=== PATIENT | female | born 1940 | race American Indian/Alaskan Native ===

== ENCOUNTER 2016-10-23 06:04 | Inpatient (IN) | payer MEDICARE, BC ==
[2016-10-23] MEDS ORDERED: Lactated Ringer's 1,000 ML IV ONE ×2 (06:35→09:57)
[2016-10-23 07:00] VITALS: BMI 32.1
[2016-10-23] MEDS ORDERED: Propofol 10 mg/ml Inj (20 ML) ONE (07:10)
[2016-10-23] MEDS ORDERED: Midazolam 2 MG/2 ML VIAL ONE (07:11)
[2016-10-23] MEDS ORDERED: Rocuronium 10 mg/ml (5 ml) ONE (07:11)
[2016-10-23] MEDS ORDERED: ePHEDrine 50 mg/ml Inj ONE ×3 (07:11→08:51)
[2016-10-23] MEDS ORDERED: Bupivacaine HCl 0.25% PF (30 ml) Inj ONE (07:12)
[2016-10-23] MEDS ORDERED: Lidocaine 2% w Epi 1:100,000 Inj IJ ONE ×2 (07:12→08:03)
[2016-10-23] MEDS ORDERED: Succinylcholine 200 mg/10 ml Inj IV ONE (07:12)
--- NOTE | 2016-10-23 07:42 | CP.PCM.CON ---
History of Present Illness - History of Present Illness History of Present Illness: 76 yo female presents with LBP x 5-6 year's gradual onset with no hx of trauma or fall,radiation RLE 4 years ago with paresthesias,progressive weakness and difficulty ambulating,uses a cane to ambulate,minimal temporary relief with multiple epidural injections,pain meds and PT,referred to Dr. Reyes for further eval, outpt MRI showing multi level lumbar spondylosis and instability,denies bowel or bladder incontinance or foot drop. Review of Systems - Review of Systems Systems not reviewed;Unavailable: Acuity of Condition - EENT Eyes: Requires Corrective Lenses - Cardiovascular Additional comments: Hx Htn - Gastrointestinal Additional comments: constipation - Musculoskeletal Musculoskeletal: Radiating Pain into Limb, Tingling - Neurological Neurological: As Per HPI - Hematologic/Lymphatic Additional comments: last used Aleve 2 weeks Past Patient History - Infectious Disease Hx of Infectious Diseases: None - Tetanus Immunizations Tetanus Immunization: Unknown - Past Medical History & Family History Past Medical History?: Yes - Past Social History Smoking Status: Never Smoked Chewing Tobacco Use: No Cigar Use: No Occupation: Retired Teacher Alcohol: Occasional Drugs: Denies Home Situation {Lives}: With Family Domestic Violence: Negative - CARDIAC Hx Cardiac Disorders: Yes Hx Hypercholesterolemia: Yes Hx Hypertension: Yes - PULMONARY Hx Respiratory Disorders: No - NEUROLOGICAL Hx Neurological Disorder: No - HEENT Hx HEENT Problems: No - RENAL Hx Chronic Kidney Disease: No - ENDOCRINE/METABOLIC Hx Endocrine Disorders: No - HEMATOLOGICAL/ONCOLOGICAL Hx Blood Disorders: No - INTEGUMENTARY Hx Dermatological Problems: No - MUSCULOSKELETAL/RHEUMATOLOGICAL Hx Musculoskeletal Disorders: Yes Hx Arthritis: Yes Hx Back Pain: Yes Hx Rheumatoid Arthritis: Yes Other/Comment: MUSCLE WEAKNESS - GASTROINTESTINAL Hx Gastrointestinal Disorders: No - GENITOURINARY/GYNECOLOGICAL Hx Genitourinary Disorders: No - PSYCHIATRIC Hx Psychophysiologic Disorder: No - SURGICAL HISTORY Hx Surgeries: Yes Other/Comment: REMOVAL LEFT OVARY 1970 - ANESTHESIA Hx Anesthesia: Yes Hx Anesthesia Reactions: No Hx Malignant Hyperthermia: No Has any member of the family had a problem w/ anesthesia?: No Meds Allergies/Adverse Reactions: Allergies Allergy/AdvReac Type Severity Reaction Status Date / Time No Known Allergies Allergy Verified 10/23/16 06:59 Physical Exam - Constitutional Appears: Well, Non-toxic, No Acute Distress - Head Exam Head Exam: ATRAUMATIC, NORMAL INSPECTION, NORMOCEPHALIC - Eye Exam Eye Exam: EOMI, Normal appearance, PERRL Pupil Exam: NORMAL ACCOMODATION - ENT Exam ENT Exam: Mucous Membranes Moist - Neck Exam Neck exam: Positive for: Normal Inspection - Respiratory Exam Respiratory Exam: Clear to Auscultation Bilateral - Cardiovascular Exam Cardiovascular Exam: REGULAR RHYTHM, +S1, +S2 - GI/Abdominal Exam GI & Abdominal Exam: Normal Bowel Sounds, Soft - Rectal Exam Rectal Exam: Deferred Additional comments: no pelvic paresthesias - Extremities Exam Extremities exam: Positive for: normal inspection, pedal pulses present - Back Exam Back exam: vertebral tenderness Additional comments: GRIDER x 4 antigravity with good strength,sensation intact,neg babinski - Neurological Exam Neurological exam: Alert, Oriented x3 - Psychiatric Exam Psychiatric exam: Normal Affect, Normal Mood - Skin Skin Exam: Dry, Intact Results - Vital Signs Recent Vital Signs: Last Vital Signs Temp 97.7 F 10/23/16 06:40 Pulse 64 10/23/16 06:40 Resp 18 10/23/16 06:40 BP 153/80 H 10/23/16 06:40 Pulse Ox 100 10/23/16 06:40 - Labs Result Diagrams: 10/24/16 07:30 10/24/16 07:30 - Impressions Impression: MRI results reviewed by Dr. 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 Reyes.
[2016-10-23] MEDS ORDERED: Dexamethasone 4 mg/1 ml ONE (08:08)
[2016-10-23] MEDS ORDERED: HEMOSTATIC MATRIX 10 ML DIS.NEEDLE TOP ONE (08:41)
[2016-10-23] MEDS ORDERED: Desflurane Inhalation Anesthetic Liq (240 ml) ONE (09:11)
[2016-10-23] MEDS ORDERED: APROTININ/FIBRINOGEN(TISSEEL) ONE ×2 (09:47→09:56)
[2016-10-23] MEDS ORDERED: Neostigmine Methylsulfate 3mg/3ml Syringe IV ONE (10:11)
[2016-10-23] MEDS ORDERED: Bupivacaine 0.25% Inj(30mL) IJ ONE ×2 (10:24→10:55)
[2016-10-23] MEDS ORDERED: HYDROmorphone 0.5 mg/0.5 ml ISec IVP PRN (11:29)
[2016-10-23] MEDS ORDERED: Naloxone 0.4 mg/ml Inj (Adult) IVP PRN (11:30)
--- NOTE | 2016-10-23 15:58 | RAD ---
PROCEDURE: Fluoroscopy greater than 1 hr. HISTORY: PLIF COMPARISON: None TECHNIQUE: Standard protocol for this study/examination. FINDINGS: Total fluoroscopic time (continuous mode) utilized during the procedure: 59.9 seconds IMPRESSION: Submitted images from the current procedure: 1.0. Greater than than 1 hr fluoroscopic time utilized during performance of the procedure.
[2016-10-23] MEDS: Lactated Ringer's 1,000 ML IV SCH ×2 (16:00→22:08)
[2016-10-23] MEDS: Dexamethasone 4 MG in Sodium Chloride 0.9% 50 ML IVPB SCH ×2 (16:00→22:05)
[2016-10-23] MEDS: ceFAZolin 1 GM in Sodium Chloride 0.9% 100 ML IVPB SCH (17:00)
[2016-10-23] MEDS ORDERED: Alum-Mag Hydrox-Simethicone Susp (30 mL) PO ONE (23:20)
[2016-10-24] MEDS: ceFAZolin 1 GM in Sodium Chloride 0.9% 100 ML IVPB SCH ×3 (00:03→16:22)
[2016-10-24] MEDS: Dexamethasone 4 MG in Sodium Chloride 0.9% 50 ML IVPB SCH ×4 (03:07→21:35)
[2016-10-24 07:59] LABS: BASO % 0.2 % (0.0-2.0); HEMATOCRIT 29.3 % (34.0-47.0); LYMPH # 0.5 K/uL (1.0-4.3); LYMPH % 8.1 % (20.0-40.0); MEAN CELL VOLUME 84.6 fl (81.0-99.0); MEAN CORPUSCULAR HEMOGLOBIN 27.6 pg (27.0-31.0); MEAN CORPUSCULAR HGB CONC 32.7 g/dL (33.0-37.0); MEAN PLATELET VOLUME 7.8 fl (7.2-11.7); MONO # 0.3 K/uL (0.0-0.8); MONO % 4.7 % (0.0-10.0); NEUT # 5.5 K/uL (1.8-7.0); PLATELET COUNT 194 K/uL (130-400); RED CELL DISTRIBUTION WIDTH 16.4 % (11.5-14.5); WHITE BLOOD COUNT 6.4 K/uL (4.8-10.8)
[2016-10-24 08:12] LABS: BLOOD UREA NITROGEN 18 mg/dl (7-17); CALCIUM 9.1 mg/dL (8.4-10.2); CARBON DIOXIDE 28 mmol/L (22-30); CHLORIDE 107 mmol/L (98-107); GFR AFRICAN-AMERICAN > 60; GLUCOSE,RANDOM 133 mg/dL (65-105); POTASSIUM 4.5 MMOL/L (3.6-5.0); SODIUM 139 mmol/l (132-148)
[2016-10-24] MEDS: Pravastatin Sodium 20 MG TAB PO SCH (08:32)
[2016-10-24] MEDS ORDERED: Enoxaparin 40 mg Syringe SC SCH (09:00)
[2016-10-24] MEDS: Lactated Ringer's 1,000 ML IV SCH (09:42)
[2016-10-24 09:51] LABS: NEUTROPHIL 89 % (42-75); REACTIVE LYMPHOCYTES 1 % (0-0); TOTAL CELLS COUNTED 100
--- NOTE | 2016-10-24 11:11 | CP.PCM.CON ---
History of Present Illness - History of Present Illness History of Present Illness: 76yo F. PMHx HTN, dyslipidemia. p/w elective spinal laminectomy of L3-L5. Admitted to ICU for required higher level of nursing care. Review of Systems - Review of Systems All systems: reviewed and no additional remarkable complaints except - Musculoskeletal Musculoskeletal: Back Pain Past Patient History - Tetanus Immunizations Tetanus Immunization: Unknown - Past Medical History & Family History Past Medical History?: Yes - Past Social History Smoking Status: Never Smoked - CARDIAC Hx Cardiac Disorders: Yes Hx Hypercholesterolemia: Yes Hx Hypertension: Yes - PULMONARY Hx Respiratory Disorders: No - NEUROLOGICAL Hx Neurological Disorder: No - HEENT Hx HEENT Problems: No - RENAL Hx Chronic Kidney Disease: No - ENDOCRINE/METABOLIC Hx Endocrine Disorders: No - HEMATOLOGICAL/ONCOLOGICAL Hx Blood Disorders: No - INTEGUMENTARY Hx Dermatological Problems: No - MUSCULOSKELETAL/RHEUMATOLOGICAL Hx Musculoskeletal Disorders: Yes Hx Arthritis: Yes Hx Back Pain: Yes Hx Rheumatoid Arthritis: Yes Other/Comment: MUSCLE WEAKNESS - GASTROINTESTINAL Hx Gastrointestinal Disorders: No - GENITOURINARY/GYNECOLOGICAL Hx Genitourinary Disorders: No - PSYCHIATRIC Hx Psychophysiologic Disorder: No - SURGICAL HISTORY Hx Surgeries: Yes Other/Comment: REMOVAL LEFT OVARY 1970 - ANESTHESIA Hx Anesthesia: Yes Hx Anesthesia Reactions: No Hx Malignant Hyperthermia: No Has any member of the family had a problem w/ anesthesia?: No Meds Allergies/Adverse Reactions: Allergies Allergy/AdvReac Type Severity Reaction Status Date / Time No Known Allergies Allergy Verified 10/23/16 06:59 - Medications Medications: Current Medications Enoxaparin Sodium (Lovenox) 40 mg SC DAILY@2100 [facility] PRN Reason: Protocol Famotidine (Pepcid) 20 mg PO DAILY [facility] Last Admin: 10/24/16 08:31 Dose: 20 mg Hydrochlorothiazide (Microzide) 12.5 mg PO DAILY [facility] Last Admin: 10/24/16 08:31 Dose: 12.5 mg Hydromorphone HCl (Dilaudid) 0.5 mg IVP Q10M PRN PRN Reason: Pain, moderate (4-7) Last Admin: 10/23/16 12:05 Dose: 0.5 mg Hydromorphone HCl (Dilaudid 0.2 Mg/Ml Chandelier Maker) 0 mg IV PRN PRN; Protocol PRN Reason: Pain, moderate (4-7) Cefazolin Sodium 1 gm/ Sodium (Chloride) 100 mls @ 100 mls/hr IVPB Q8 [facility] Last Admin: 10/24/16 08:30 Dose: 100 mls/hr Dexamethasone 4 mg/ Sodium (Chloride) 51 mls @ 102 mls/hr IVPB Q6 [facility] Last Admin: 10/24/16 09:42 Dose: 102 mls/hr Lactated Ringer's (Lactated Ringer's) 1,000 mls @ 80 mls/hr IV .[id number] [facility] Last Admin: 10/24/16 09:42 Dose: 80 mls/hr Losartan Potassium (Cozaar) 100 mg PO DAILY [facility] Naloxone HCl (Narcan) 0.1 mg IVP Q2M PRN PRN Reason: Opiate reversal Pravastatin Sodium (Pravachol) 20 mg PO DAILY [facility] Last Admin: 10/24/16 08:32 Dose: 20 mg Physical Exam - Head Exam Head Exam: ATRAUMATIC, NORMAL INSPECTION, NORMOCEPHALIC - Eye Exam Eye Exam: EOMI, Normal appearance, PERRL - ENT Exam ENT Exam: Mucous Membranes Moist, Normal Exam - Respiratory Exam Respiratory Exam: Clear to Auscultation Bilateral, NORMAL BREATHING PATTERN - Cardiovascular Exam Cardiovascular Exam: REGULAR RHYTHM - GI/Abdominal Exam GI & Abdominal Exam: Normal Bowel Sounds, Soft. absent: Tenderness - Neurological Exam Neurological exam: Alert, CN II-XII Intact, Oriented x3, Reflexes Normal - Psychiatric Exam Psychiatric exam: Normal Affect, Normal Mood Results - Vital Signs Recent Vital Signs: Last Vital Signs Temp 98.3 F 10/24/16 08:00 Pulse 56 L 10/24/16 10:00 Resp 16 10/24/16 10:00 BP 113/54 L 10/24/16 10:00 Pulse Ox 100 10/24/16 10:00 - Labs Result Diagrams: 10/24/16 07:30 10/24/16 07:30 Labs: Laboratory Results - last 24 hr 10/24/16 10/24/16 07:30 07:30 WBC 6.4 RBC 3.47 L Hgb 9.6 L Hct 29.3 L MCV 84.6 MCH 27.6 MCHC 32.7 L RDW 16.4 H Plt Count 194 MPV 7.8 Neut % (Auto) 87.0 H Lymph % (Auto) 8.1 L [place] % (Auto) 4.7 Eos % (Auto) 0.0 Baso % (Auto) 0.2 Neut # 5.5 Lymph # 0.5 L [place] # 0.3 Eos # 0.0 Baso # 0.0 Neutrophils % (Manual) 89 H Lymphocytes % (Manual) 9 L Reactive Lymphs % 1 H Monocytes % (Manual) 1 Platelet Estimate Normal Hypochromasia (manual) Slight Anisocytosis (manual) Slight Ovalocytes Slight Sodium 139 Potassium 4.5 Chloride 107 Carbon Dioxide 28 Anion Gap 9 L BUN 18 H Creatinine 0.9 Est GFR ( Amer) > 60 Est GFR (Non-Af Amer) > 60 Random Glucose 133 H Calcium 9.1 Assessment & Plan (1) S/P laminectomy Assessment and Plan: 76yo F. PMHx HTN, dyslipidemia. p/w elective spinal laminectomy of L3-L5. Admitted to ICU for required higher level of nursing care. Neuro: alert and oriented, Dilaudid WAX SPECIALIST for pain with when necessary pushes. Decadron 4 mg IV every 6h, status post laminectomy. Pulm: No acute issues, breathing spontaneously on room air. CV: Hemodynamically stable. Hypertension controlled with Cozaar and hydrochlorothiazide. Hem: No acute issues Renal: No acute issues, urine output within normal limits, will monitor. Maintenance fluids LR at 80 ML's per hour. Endo: No acute issues GI: Low-sodium heart healthy diet ID: Empiric coverage with cefazolin 1 g IV every 8h, status post surgery. Surgical complication with laceration of the dura, Patient to remain bedbound until Friday, October 26, as per orthopedic surgery. DVT proph - Lovenox, to be started 24 hours postop GI proph - Pepcid Code status - full code Critical Care Time spent 35 minutes Multi-disciplinary rounds were performed with house staff, nursing, speech therapy, respiratory therapy, pharmacy and nutrition with integrated input from the primary team/attending and other consulting services. The documented time is cumulative and includes review of patient data/exams/labs/chart review and examination of the patient on rounds and throughout the day; time is exclusive of any procedures or teaching time. Status: Acute
[2016-10-24] MEDS: Enoxaparin 40 mg Syringe SC SCH (21:34)
[2016-10-25] MEDS: ceFAZolin 1 GM in Sodium Chloride 0.9% 100 ML IVPB SCH ×3 (00:22→18:23)
[2016-10-25] MEDS: Lactated Ringer's 1,000 ML IV SCH (00:26)
[2016-10-25] MEDS: Dexamethasone 4 MG in Sodium Chloride 0.9% 50 ML IVPB SCH ×4 (04:43→21:14)
[2016-10-25 05:32] LABS: HEMATOCRIT 28.2 % (34.0-47.0); MEAN CELL VOLUME 85.1 fl (81.0-99.0); MEAN CORPUSCULAR HEMOGLOBIN 27.5 pg (27.0-31.0); MEAN CORPUSCULAR HGB CONC 32.4 g/dL (33.0-37.0); RED CELL DISTRIBUTION WIDTH 16.2 % (11.5-14.5); WHITE BLOOD COUNT 7.8 K/uL (4.8-10.8)
[2016-10-25 05:46] LABS: BLOOD UREA NITROGEN 22 mg/dl (7-17); CALCIUM 9.1 mg/dL (8.4-10.2); CARBON DIOXIDE 30 mmol/L (22-30); CHLORIDE 108 mmol/L (98-107); GFR AFRICAN-AMERICAN > 60; GLUCOSE,RANDOM 122 mg/dL (65-105); POTASSIUM 4.5 MMOL/L (3.6-5.0); SODIUM 139 mmol/l (132-148)
[2016-10-25] MEDS: Pravastatin Sodium 20 MG TAB PO SCH (08:37)
--- NOTE | 2016-10-25 11:02 | US ---
PROCEDURE: Bilateral lower extremity venous duplex Doppler. HISTORY: p/op lumbar laminectomy/fusion,dural tear, pt flat COMPARISON: None available. TECHNIQUE: Bilateral common femoral, superficial femoral, popliteal and posterior tibial veins were evaluated. Flow was assessed with color Doppler, compressibility, assessment of phasic flow and augmentation response. FINDINGS: COMMON FEMORAL VEIN: Right CFV: Unremarkable. Left CFV: Unremarkable. SUPERFICIAL FEMORAL VEIN: Right SFV: Unremarkable. Left SFV: Unremarkable. POPLITEAL VEIN: Right Popliteal: Unremarkable. Left Popliteal: Unremarkable. POSTERIOR TIBIAL VEIN: Right PTV: Unremarkable. Left PTV: Unremarkable. OTHER FINDINGS: None. IMPRESSION: No evidence of deep venous thrombosis.
[2016-10-25] MEDS: Enoxaparin 40 mg Syringe SC SCH (21:16)
[2016-10-26] MEDS: ceFAZolin 1 GM in Sodium Chloride 0.9% 100 ML IVPB SCH ×2 (00:06→08:52)
[2016-10-26] MEDS: Dexamethasone 4 MG in Sodium Chloride 0.9% 50 ML IVPB SCH ×3 (04:39→22:31)
[2016-10-26] MEDS: Pravastatin Sodium 20 MG TAB PO SCH (08:52)
[2016-10-26] MEDS ORDERED: Dexamethasone 4 mg/1 ml ONE (09:00)
[2016-10-26] MEDS: Lactated Ringer's 1,000 ML IV SCH (22:30)
[2016-10-26] MEDS: Enoxaparin 40 mg Syringe SC SCH (22:31)
[2016-10-27] MEDS: ceFAZolin 1 GM in Sodium Chloride 0.9% 100 ML IVPB SCH ×3 (00:23→16:25)
[2016-10-27] MEDS: Dexamethasone 4 MG in Sodium Chloride 0.9% 50 ML IVPB SCH ×4 (04:34→21:00)
[2016-10-27] MEDS: Pravastatin Sodium 20 MG TAB PO SCH (09:17)
[2016-10-27] MEDS: Lactated Ringer's 1,000 ML IV SCH (16:27)
[2016-10-27] MEDS: Enoxaparin 40 mg Syringe SC SCH (21:40)
[2016-10-28] MEDS: ceFAZolin 1 GM in Sodium Chloride 0.9% 100 ML IVPB SCH ×3 (00:43→17:00)
[2016-10-28] MEDS: Dexamethasone 4 MG in Sodium Chloride 0.9% 50 ML IVPB SCH ×3 (03:53→20:53)
[2016-10-28] MEDS: Lactated Ringer's 1,000 ML IV SCH (06:43)
[2016-10-28 06:45] LABS: ALB/GLOB RATIO 1.2 (1.0-2.1); ALKALINE PHOSPHATASE 57 U/L (38-126); ALT/SGPT 48 U/L (9-52); AST/SGOT 29 U/L (14-36); BASO % 0.2 % (0.0-2.0); BILIRUBIN,TOTAL 0.4 mg/dl (0.2-1.3); BLOOD UREA NITROGEN 26 mg/dl (7-17); CALCIUM 8.8 mg/dL (8.4-10.2); CARBON DIOXIDE 29 mmol/L (22-30); CHLORIDE 108 mmol/L (98-107); CHOLESTEROL 181 mg/dL (0-199); GFR AFRICAN-AMERICAN > 60; GLUCOSE,RANDOM 113 mg/dL (65-105); HEMATOCRIT 28.5 % (34.0-47.0); LYMPH # 0.6 K/uL (1.0-4.3); LYMPH % 15.1 % (20.0-40.0); MEAN CELL VOLUME 85.2 fl (81.0-99.0); MEAN CORPUSCULAR HEMOGLOBIN 27.6 pg (27.0-31.0); MEAN CORPUSCULAR HGB CONC 32.4 g/dL (33.0-37.0); MEAN PLATELET VOLUME 9.6 fl (7.2-11.7); MONO # 0.2 K/uL (0.0-0.8); MONO % 6.1 % (0.0-10.0); NEUT # 2.9 K/uL (1.8-7.0); NEUT % 78.6 % (50.0-75.0); NRBC % 0.1 % (0.0-0.0); POTASSIUM 4.3 MMOL/L (3.6-5.0); RED CELL DISTRIBUTION WIDTH 16.1 % (11.5-14.5); SODIUM 140 mmol/l (132-148); TOTAL PROTEIN 5.3 G/DL (6.3-8.2); WHITE BLOOD COUNT 3.7 K/uL (4.8-10.8)
--- NOTE | 2016-10-28 06:58 | CARD ---
APPROVED REPORT EKG Measurement Heart [id number] <Conclusion> Sinus bradycardia Otherwise normal ECG
[2016-10-28] MEDS: Pravastatin Sodium 20 MG TAB PO SCH (08:37)
--- NOTE | 2016-10-28 12:33 | CP.PCM.HP ---
History of Present Illness - History of Present Illness History of Present Illness: This is a 76 y/o female with progressive worsening of lower back pain with radiculopathy admtted and had laminectomy. She failed conservative measures including pain meds, Physical therapy and injections, MRI showed multilevel spondylosis. She had laminectomy and immediate post op period was unremarkable. She has a hx of HTN and hyperlipidemia and had seen her Laundry Pricing Clerk recently for cardiac clearance prior to surgery, Present on Admission - Present on Admission Any Indicators Present on Admission: No History of DVT/PE: No History of Uncontrolled Diabetes: No Urinary Catheter: No Decubitus Ulcer Present: No Past Patient History - Infectious Disease Hx of Infectious Diseases: None - Tetanus Immunizations Tetanus Immunization: Unknown - Past Medical History & Family History Past Medical History?: Yes - Past Social History Smoking Status: Never Smoked Chewing Tobacco Use: No Cigar Use: No Occupation: Retired Teacher Alcohol: Occasional Drugs: Denies Home Situation {Lives}: With Family Domestic Violence: Negative - CARDIAC Hx Cardiac Disorders: Yes Hx Hypercholesterolemia: Yes Hx Hypertension: Yes - PULMONARY Hx Respiratory Disorders: No - NEUROLOGICAL Hx Neurological Disorder: No - HEENT Hx HEENT Problems: No - RENAL Hx Chronic Kidney Disease: No - ENDOCRINE/METABOLIC Hx Endocrine Disorders: No - HEMATOLOGICAL/ONCOLOGICAL Hx Blood Disorders: No - INTEGUMENTARY Hx Dermatological Problems: No - MUSCULOSKELETAL/RHEUMATOLOGICAL Hx Musculoskeletal Disorders: Yes Hx Arthritis: Yes Hx Back Pain: Yes Hx Rheumatoid Arthritis: Yes Other/Comment: MUSCLE WEAKNESS - GASTROINTESTINAL Hx Gastrointestinal Disorders: No - GENITOURINARY/GYNECOLOGICAL Hx Genitourinary Disorders: No - PSYCHIATRIC Hx Psychophysiologic Disorder: No - SURGICAL HISTORY Hx Surgeries: Yes Other/Comment: REMOVAL LEFT OVARY 1969 - ANESTHESIA Hx Anesthesia: Yes Hx Anesthesia Reactions: No Hx Malignant Hyperthermia: No Has any member of the family had a problem w/ anesthesia?: No Meds Allergies/Adverse Reactions: Allergies Allergy/AdvReac Type Severity Reaction Status Date / Time No Known Allergies Allergy Verified 10/23/16 06:59 Physical Exam - Head Exam Head Exam: NORMAL INSPECTION - Eye Exam Eye Exam: Normal appearance - ENT Exam ENT Exam: Mucous Membranes Moist - Respiratory Exam Respiratory Exam: Clear to Auscultation Bilateral - Cardiovascular Exam Cardiovascular Exam: REGULAR RHYTHM - GI/Abdominal Exam GI & Abdominal Exam: Normal Bowel Sounds - Neurological Exam Neurological exam: Reflexes Normal - Psychiatric Exam Psychiatric exam: Normal Mood Results - Vital Signs Recent Vital Signs: Last Vital Signs Temp 97.6 F 10/28/16 08:00 Pulse 44 L 10/28/16 09:00 Resp 18 10/28/16 08:00 BP 120/62 10/28/16 08:00 Pulse Ox 97 10/28/16 08:00 - Labs Result Diagrams: 10/28/16 05:00 10/28/16 05:00 Labs: Laboratory Results - last 24 hr 10/28/16 10/28/16 10/28/16 05:00 05:00 05:00 WBC 3.7 L D RBC 3.35 L Hgb 9.2 L Hct 28.5 L MCV 85.2 MCH 27.6 MCHC 32.4 L RDW 16.1 H Plt Count 208 MPV 9.6 Neut % (Auto) 78.6 H Lymph % (Auto) 15.1 L [place] % (Auto) 6.1 Eos % (Auto) 0.0 Baso % (Auto) 0.2 Neut # 2.9 Lymph # 0.6 L [place] # 0.2 Eos # 0.0 Baso # 0.0 Sodium 140 Potassium 4.3 Chloride 108 H Carbon Dioxide 29 Anion Gap 7 L BUN 26 H Creatinine 0.8 Est GFR ( Amer) > 60 Est GFR (Non-Af Amer) > 60 Random Glucose 113 H Hemoglobin A1c 6.0 Calcium 8.8 Total Bilirubin 0.4 AST 29 ALT 48 Alkaline Phosphatase 57 Total Protein 5.3 L Albumin 2.9 L Globulin 2.4 Albumin/Globulin Ratio 1.2 Triglycerides 102 Cholesterol 181 LDL Cholesterol Direct 91 HDL Cholesterol 61 Assessment & Plan (1) Hyperlipidemia Status: Acute (2) Hypertension Status: Acute (3) S/P laminectomy Status: Acute - Assessment and Plan (Free Text) Plan: cont pain meds flat on bed cont all home meds monitor drainage cont tx.
--- NOTE | 2016-10-28 12:37 | CP.PCM.PN ---
Subjective - Date & Time of Evaluation Date of Evaluation: 10/25/16 Time of Evaluation: 09:30 - Subjective Subjective: Patient was seen in ICU. She was advised to be flat on bed. Has no headaches no chest pain or SOB. Objective - Vital Signs/Intake and Output Vital Signs (last 24 hours): Temp Pulse Resp BP Pulse Ox 97.6 F 44 L 18 120/62 97 10/28/16 08:00 10/28/16 09:00 10/28/16 08:00 10/28/16 08:00 10/28/16 08:00 Intake and Output: 10/28/16 10/28/16 06:59 18:59 Intake Total 1450 Output Total 645 Balance 805 - Medications Medications: Current Medications Enoxaparin Sodium (Lovenox) 40 mg SC DAILY@2100 [facility] PRN Reason: Protocol Last Admin: 10/27/16 21:40 Dose: 40 mg Famotidine (Pepcid) 20 mg PO DAILY [facility] Last Admin: 10/28/16 08:37 Dose: 20 mg Hydrochlorothiazide (Microzide) 12.5 mg PO DAILY [facility] Last Admin: 10/26/16 08:53 Dose: Not Given Cefazolin Sodium 1 gm/ Sodium (Chloride) 100 mls @ 100 mls/hr IVPB Q8 [facility] Last Admin: 10/28/16 08:37 Dose: 100 mls/hr Lactated Ringer's (Lactated Ringer's) 1,000 mls @ 80 mls/hr IV .[id number] [facility] Last Admin: 10/28/16 06:43 Dose: 80 mls/hr Dexamethasone 4 mg/ Sodium (Chloride) 51 mls @ 102 mls/hr IVPB Q12 [facility] Losartan Potassium (Cozaar) 100 mg PO DAILY [facility] Last Admin: 10/27/16 09:17 Dose: 100 mg Morphine Sulfate (Morphine) 2 mg IVP Q6 PRN PRN Reason: Pain, moderate (4-7) Morphine Sulfate (Morphine) 4 mg IVP Q6 PRN PRN Reason: Pain, severe (8-10) Last Admin: 10/25/16 00:20 Dose: 4 mg Naloxone HCl (Narcan) 0.1 mg IVP Q2M PRN PRN Reason: Opiate reversal Pravastatin Sodium (Pravachol) 20 mg PO DAILY [facility] Last Admin: 10/28/16 08:37 Dose: 20 mg - Labs Labs: 10/28/16 05:00 10/28/16 05:00 - Head Exam Head Exam: NORMAL INSPECTION - Eye Exam Eye Exam: Normal appearance - ENT Exam ENT Exam: Mucous Membranes Moist - Respiratory Exam Respiratory Exam: Clear to Ausculation Bilateral - Cardiovascular Exam Cardiovascular Exam: REGULAR RHYTHM - Neurological Exam Neurological Exam: CN II-XII Intact, Oriented x3 - Psychiatric Exam Psychiatric exam: Normal Mood Assessment and Plan (1) S/P laminectomy Status: Acute (2) Hypertension Status: Acute (3) Hyperlipidemia Status: Acute - Assessment and Plan (Free Text) Plan: cont meds cont tx Cont bedside PT will continue to be flat on bed for another day.
--- NOTE | 2016-10-28 12:40 | CP.PCM.PN ---
Subjective - Date & Time of Evaluation Date of Evaluation: 10/26/16 Time of Evaluation: 09:30 - Subjective Subjective: Patient was noted to have few episodes of bradycardia at night mostly in the upper 40's. Denies any dizzines or chest pain or SOB. Objective - Vital Signs/Intake and Output Vital Signs (last 24 hours): Temp Pulse Resp BP Pulse Ox 97.6 F 44 L 18 120/62 97 10/28/16 08:00 10/28/16 09:00 10/28/16 08:00 10/28/16 08:00 10/28/16 08:00 Intake and Output: 10/28/16 10/28/16 06:59 18:59 Intake Total 1450 Output Total 645 Balance 805 - Medications Medications: Current Medications Enoxaparin Sodium (Lovenox) 40 mg SC DAILY@2100 [facility] PRN Reason: Protocol Last Admin: 10/27/16 21:40 Dose: 40 mg Famotidine (Pepcid) 20 mg PO DAILY [facility] Last Admin: 10/28/16 08:37 Dose: 20 mg Hydrochlorothiazide (Microzide) 12.5 mg PO DAILY [facility] Last Admin: 10/26/16 08:53 Dose: Not Given Cefazolin Sodium 1 gm/ Sodium (Chloride) 100 mls @ 100 mls/hr IVPB Q8 [facility] Last Admin: 10/28/16 08:37 Dose: 100 mls/hr Lactated Ringer's (Lactated Ringer's) 1,000 mls @ 80 mls/hr IV .[id number] [facility] Last Admin: 10/28/16 06:43 Dose: 80 mls/hr Dexamethasone 4 mg/ Sodium (Chloride) 51 mls @ 102 mls/hr IVPB Q12 [facility] Losartan Potassium (Cozaar) 100 mg PO DAILY [facility] Last Admin: 10/27/16 09:17 Dose: 100 mg Morphine Sulfate (Morphine) 2 mg IVP Q6 PRN PRN Reason: Pain, moderate (4-7) Morphine Sulfate (Morphine) 4 mg IVP Q6 PRN PRN Reason: Pain, severe (8-10) Last Admin: 10/25/16 00:20 Dose: 4 mg Naloxone HCl (Narcan) 0.1 mg IVP Q2M PRN PRN Reason: Opiate reversal Pravastatin Sodium (Pravachol) 20 mg PO DAILY [facility] Last Admin: 10/28/16 08:37 Dose: 20 mg - Labs Labs: 10/28/16 05:00 10/28/16 05:00 - Head Exam Head Exam: NORMAL INSPECTION - Eye Exam Eye Exam: Normal appearance - Respiratory Exam Respiratory Exam: NORMAL BREATHING PATTERN - Cardiovascular Exam Cardiovascular Exam: REGULAR RHYTHM - GI/Abdominal Exam GI & Abdominal Exam: Normal Bowel Sounds - Neurological Exam Neurological Exam: CN II-XII Intact, Oriented x3 - Psychiatric Exam Psychiatric exam: Normal Mood Assessment and Plan (1) S/P laminectomy Status: Acute (2) Hypertension Status: Acute (3) Hyperlipidemia Status: Acute (4) Sinus bradycardia Status: Acute - Assessment and Plan (Free Text) Plan: con tmeds cont to monitor reviewed meds . Not on any B seema. Low salt low fat diet
--- NOTE | 2016-10-28 12:42 | CP.PCM.PN ---
Subjective - Date & Time of Evaluation Date of Evaluation: 10/27/16 Time of Evaluation: 09:30 - Subjective Subjective: Patiewnt ocntinue to improve a lot. Stlill with episodes of bradycardiaat night at times to lower 40's. Denies any chest pain or SB. Objective - Vital Signs/Intake and Output Vital Signs (last 24 hours): Temp Pulse Resp BP Pulse Ox 97.6 F 44 L 18 120/62 97 10/28/16 08:00 10/28/16 09:00 10/28/16 08:00 10/28/16 08:00 10/28/16 08:00 Intake and Output: 10/28/16 10/28/16 06:59 18:59 Intake Total 1450 Output Total 645 Balance 805 - Medications Medications: Current Medications Enoxaparin Sodium (Lovenox) 40 mg SC DAILY@2100 [facility] PRN Reason: Protocol Last Admin: 10/27/16 21:40 Dose: 40 mg Famotidine (Pepcid) 20 mg PO DAILY [facility] Last Admin: 10/28/16 08:37 Dose: 20 mg Hydrochlorothiazide (Microzide) 12.5 mg PO DAILY [facility] Last Admin: 10/26/16 08:53 Dose: Not Given Cefazolin Sodium 1 gm/ Sodium (Chloride) 100 mls @ 100 mls/hr IVPB Q8 [facility] Last Admin: 10/28/16 08:37 Dose: 100 mls/hr Lactated Ringer's (Lactated Ringer's) 1,000 mls @ 80 mls/hr IV .[id number] [facility] Last Admin: 10/28/16 06:43 Dose: 80 mls/hr Dexamethasone 4 mg/ Sodium (Chloride) 51 mls @ 102 mls/hr IVPB Q12 [facility] Losartan Potassium (Cozaar) 100 mg PO DAILY [facility] Last Admin: 10/27/16 09:17 Dose: 100 mg Morphine Sulfate (Morphine) 2 mg IVP Q6 PRN PRN Reason: Pain, moderate (4-7) Morphine Sulfate (Morphine) 4 mg IVP Q6 PRN PRN Reason: Pain, severe (8-10) Last Admin: 10/25/16 00:20 Dose: 4 mg Naloxone HCl (Narcan) 0.1 mg IVP Q2M PRN PRN Reason: Opiate reversal Pravastatin Sodium (Pravachol) 20 mg PO DAILY [facility] Last Admin: 10/28/16 08:37 Dose: 20 mg - Labs Labs: 10/28/16 05:00 10/28/16 05:00 - Head Exam Head Exam: NORMAL INSPECTION - Eye Exam Eye Exam: Normal appearance - ENT Exam ENT Exam: Mucous Membranes Moist - Cardiovascular Exam Cardiovascular Exam: REGULAR RHYTHM - GI/Abdominal Exam GI & Abdominal Exam: Normal Bowel Sounds - Neurological Exam Neurological Exam: Awake, Oriented x3 - Psychiatric Exam Psychiatric exam: Normal Mood Assessment and Plan (1) S/P laminectomy Status: Acute (2) Hypertension Status: Acute (3) Hyperlipidemia Status: Acute (4) Sinus bradycardia Status: Acute - Assessment and Plan (Free Text) Plan: contmeds cont tx Cont PT follow up with human resources admin
[2016-10-28] MEDS: Enoxaparin 40 mg Syringe SC SCH (22:14)
[2016-10-29] MEDS: ceFAZolin 1 GM in Sodium Chloride 0.9% 100 ML IVPB SCH ×3 (00:55→16:00)
[2016-10-29] MEDS: Dexamethasone 4 MG in Sodium Chloride 0.9% 50 ML IVPB SCH ×2 (08:00→20:57)
[2016-10-29] MEDS: Pravastatin Sodium 20 MG TAB PO SCH (08:43)
--- NOTE | 2016-10-29 14:19 | CP.PCM.CON ---
History of Present Illness - History of Present Illness History of Present Illness: I was asked to see patient by Dr. Cuadra. Patient is a 76 year old female with a PMH HTN who is s.p laminectomy. The patient is followed by Dr. Casey in [place]. The patient had a preoperative cardiovascular stress test which by her report was negative. The patient denies chest pain or dyspnea. She denies syncope. Review of Systems - Constitutional Constitutional: absent: As Per HPI, Anorexia, Chills, Daytime Sleepiness, Excessive Sweating, Fatigue, Fever, Frequent Falls, Headache, Increased Appetite , Lethargy, Malaise, Night Sweats, Snoring, Sleep Apnea, Weight Gain, Weight Loss, Weakness, Other - EENT Eyes: absent: As Per HPI, Blind Spots, Blurred Vision, Change in Vision, Decreased Night Vision, Diplopia, Discharge, Dry Eye, Exophthalmos, Floaters, Irritation, Itchy Eyes, Loss of Peripheral Vision, Pain, Photophobia, Requires Corrective Lenses, Sees Flashes, Spots in Vision, Tunnel Vision, Other Visual Disturbances, Loss of Vision, Other Ears: absent: As Per HPI, Decreased Hearing, Ear Discharge, Ear Pain, Tinnitus, Abnormal Hearing, Disequilibrium, Dizziness, Other Nose/Mouth/Throat: absent: As Per HPI, Epistaxis, Nasal Congestion, Nasal Discharge, Nasal Obstruction, Nasal Trauma, Nose Pain, Post Nasal Drip, Sinus Pain, Sinus Pressure, Bleeding Gums, Change in Voice, Dental Pain, Dry Mouth, Dysphagia, Halitosis, Hoarsness, Lip Swelling, Mouth Lesions, Mouth Pain, Odynophagia, Sore Throat, Throat Swelling, Tongue Swelling, Facial Pain, Neck Pain, Neck Mass, Other - Cardiovascular Cardiovascular: absent: As Per HPI, Acrocyanosis, Chest Pain, Chest Pain at Rest , Chest Pain with Activity, Claudication, Diaphoresis, Dyspnea, Dyspnea on Exertion, Edema, Irregular Heart Rhythm, Pain Radiating to Arm/Neck/Jaw, Leg Edema, Leg Ulcers, Lightheadedness, Orthopnea, Palpitations, Paroxysmal Nocturnal Dyspnea, Pedal Edema, Radiating Pain, Rapid Heart Rate, Slow Heart Rate, Syncope, Other - Respiratory Respiratory: absent: As Per HPI, Cough, Dyspnea, Hemoptysis, Dyspnea on Exertion , Wheezing, Snoring, Stridor, Pain on Inspiration, Chest Congestion, Excessive Mucous Production, Change in Mucous Color, Pain with Coughing, Other - Gastrointestinal Gastrointestinal: absent: As Per HPI, Abdominal Pain, Belching, Bloating, Change in Bowel Habits, Change in Stool Character, Coffee Ground Emesis, Constipation, Cramping, Diarrhea, Dyspepsia, Dysphagia, Early Satiety, Excessive Flatus, Fecal Incontinence, Heartburn, Hematemesis, Hematochezia, Loose Stools, Melena, Nausea, Odynophagia, Temesmus, Vomiting, Other - Genitourinary Genitourinary: absent: As Per HPI, Change in Urinary Stream, Difficulty Urinating, Dysuria, Flank Pain, Hematuria, Pyuria, Nocturia, Urinary Incontinence, Urinary Frequency, Urinary Hesitance, Urinary Urgency, Voiding Freq/Small Amts, Freq UTI, Hx Renal/Bladder Calculi, Hx /Renal Surgery, Bladder Distension, Other - Musculoskeletal Musculoskeletal: absent: As Per HPI, Abnormal Gait, Arthralgias, Atrophy, Back Pain, Deformity, Joint Swelling, Limited Range of Motion, Loss of Height, Muscle Cramps, Muscle Weakness, Myalgias, Neck Pain, Numbness, Radiating Pain into Limb, Stiffness, Tingling, Other - Integumentary Integumentary: absent: As Per HPI, Acne, Alopecia, Bleeding Lesions, Change in Hair, Change in Nails, Change in Pigmentation, Changing Lesions, Dry Skin, Erythema, Furuncle, Hirsutism, Lesions, New Lesions, Non-Healing Lesions, Photosensitivity, Pruritus, Rash, Skin Pain, Skin Ulcer, Sores, Striae, Swelling , Unusual Bruising, Wounds, Jaundice, Other - Neurological Neurological: absent: As Per HPI, Abnormal Gait, Abnormal Hearing, Abnormal Movements, Abnormal Speech, Behavioral Changes, Burning Sensations, Confusion, Convulsions, Disequilibrium, Dizziness, Numbness, Focal Weakness, Frequent Falls , Headaches, Lack of Coordination, Loss of Vision, Memory Loss, Paresthesias, Radicular Pain, Restless Legs, Sensory Deficit, Syncope, Tingling, Tremor, Vertigo, Weakness, Other Visual Disturbances, Other - Psychiatric Psychiatric: absent: As Per HPI, Abnormal Sleep Pattern, Anhedonia, Anxiety, Auditory Hallucinations, Behavioral Changes, Change in Appetite, Change in Libido, Confusion, Depression, Difficulty Concentrating, Hallucinations, Homicidal Ideation, Hopelessness, Irritability, Memory Loss, Mood Swings, Panic Attacks, Paranoia, Suicidal Ideation, Visual Hallucinations, Tactile Hallucinations, Other - Endocrine Endocrine: absent: As Per HPI, Change in Body Appearance, Change in Libido, Cold Intolorance, Deepening of Voice, Excessive Sweating, Fatigue, Flushing, Heat Intolorance, Increase in Ring/Shoe/Hat Size, Palpitations, Polydipsia, Polyphagia, Polyuria, Other - Hematologic/Lymphatic Hematologic: absent: As Per HPI, Easy Bleeding, Easy Bruising, Lymphadenopathy, Other Past Patient History - Infectious Disease Hx of Infectious Diseases: None - Tetanus Immunizations Tetanus Immunization: Unknown - Past Medical History & Family History Past Medical History?: Yes - Past Social History Smoking Status: Never Smoked Chewing Tobacco Use: No Cigar Use: No Occupation: Retired Teacher Alcohol: Occasional Drugs: Denies Home Situation {Lives}: With Family Domestic Violence: Negative - CARDIAC Hx Cardiac Disorders: Yes Hx Hypercholesterolemia: Yes Hx Hypertension: Yes - PULMONARY Hx Respiratory Disorders: No - NEUROLOGICAL Hx Neurological Disorder: No - HEENT Hx HEENT Problems: No - RENAL Hx Chronic Kidney Disease: No - ENDOCRINE/METABOLIC Hx Endocrine Disorders: No - HEMATOLOGICAL/ONCOLOGICAL Hx Blood Disorders: No - INTEGUMENTARY Hx Dermatological Problems: No - MUSCULOSKELETAL/RHEUMATOLOGICAL Hx Arthritis: Yes Hx Rheumatoid Arthritis: Yes - GASTROINTESTINAL Hx Gastrointestinal Disorders: No - GENITOURINARY/GYNECOLOGICAL Hx Genitourinary Disorders: No - PSYCHIATRIC Hx Psychophysiologic Disorder: No - SURGICAL HISTORY Hx Surgeries: Yes Other/Comment: REMOVAL LEFT OVARY 1970 - ANESTHESIA Hx Anesthesia: Yes Hx Anesthesia Reactions: No Hx Malignant Hyperthermia: No Has any member of the family had a problem w/ anesthesia?: No Meds Allergies/Adverse Reactions: Allergies Allergy/AdvReac Type Severity Reaction Status Date / Time No Known Allergies Allergy Verified 10/23/16 06:59 - Medications Medications: Current Medications Enoxaparin Sodium (Lovenox) 40 mg SC DAILY@2100 [facility] PRN Reason: Protocol Last Admin: 10/28/16 22:14 Dose: 40 mg Famotidine (Pepcid) 20 mg PO DAILY [facility] Last Admin: 10/29/16 08:43 Dose: 20 mg Hydrochlorothiazide (Microzide) 12.5 mg PO DAILY [facility] Last Admin: 10/26/16 08:53 Dose: Not Given Cefazolin Sodium 1 gm/ Sodium (Chloride) 100 mls @ 100 mls/hr IVPB Q8 [facility] Last Admin: 10/29/16 08:30 Dose: 100 mls/hr Lactated Ringer's (Lactated Ringer's) 1,000 mls @ 80 mls/hr IV .[id number] [facility] Last Admin: 10/28/16 06:43 Dose: 80 mls/hr Dexamethasone 4 mg/ Sodium (Chloride) 51 mls @ 102 mls/hr IVPB Q12 [facility] Last Admin: 10/29/16 08:00 Dose: 102 mls/hr Losartan Potassium (Cozaar) 100 mg PO DAILY [facility] Last Admin: 10/29/16 08:43 Dose: Not Given Morphine Sulfate (Morphine) 2 mg IVP Q6 PRN PRN Reason: Pain, moderate (4-7) Morphine Sulfate (Morphine) 4 mg IVP Q6 PRN PRN Reason: Pain, severe (8-10) Last Admin: 10/25/16 00:20 Dose: 4 mg Naloxone HCl (Narcan) 0.1 mg IVP Q2M PRN PRN Reason: Opiate reversal Pravastatin Sodium (Pravachol) 20 mg PO DAILY [facility] Last Admin: 10/29/16 08:43 Dose: 20 mg Physical Exam - Constitutional Appears: Non-toxic - Head Exam Head Exam: NORMAL INSPECTION - Eye Exam Eye Exam: Normal appearance - ENT Exam ENT Exam: Mucous Membranes Moist - Neck Exam Neck exam: Positive for: Full Rom - Respiratory Exam Respiratory Exam: NORMAL BREATHING PATTERN - Cardiovascular Exam Cardiovascular Exam: REGULAR RHYTHM - GI/Abdominal Exam GI & Abdominal Exam: Normal Bowel Sounds - Rectal Exam Rectal Exam: Deferred - Extremities Exam Extremities exam: Positive for: pedal edema - Back Exam Back exam: NORMAL INSPECTION - Neurological Exam Neurological exam: Alert, Oriented x3 - Psychiatric Exam Psychiatric exam: Normal Affect - Skin Skin Exam: Normal Color Results - Vital Signs Recent Vital Signs: Last Vital Signs Temp 98.5 F 10/29/16 12:00 Pulse 46 L 10/29/16 12:00 Resp 18 10/29/16 12:00 BP 135/67 10/29/16 12:00 Pulse Ox 97 10/29/16 12:00 - Labs Result Diagrams: 10/28/16 05:00 10/28/16 05:00 - EKG Data EKG Interpreted by: Myself EKG shows normal: Sinus rhythm Rate: Bradycardia Assessment & Plan (1) Sinus bradycardia Assessment and Plan: patient is asymptomatic and hemodynamically stable. recommend medical therapy. no additonal workup is needed at thist time. Status: Acute (2) Hyperlipidemia Assessment and Plan: statin therapy Status: Acute (3) Hypertension Assessment and Plan: blood pressure control Status: Acute
[2016-10-29] MEDS: Enoxaparin 40 mg Syringe SC SCH (20:58)
[2016-10-30] MEDS: ceFAZolin 1 GM in Sodium Chloride 0.9% 100 ML IVPB SCH ×2 (01:25→08:29)
[2016-10-30 05:10] VITALS: O2SAT 98
[2016-10-30] MEDS: Dexamethasone 4 MG in Sodium Chloride 0.9% 50 ML IVPB SCH (08:30)
[2016-10-30] MEDS: Pravastatin Sodium 20 MG TAB PO SCH (08:31)
--- NOTE | 2016-10-30 12:03 | CP.PCM.PN ---
Subjective - Date & Time of Evaluation Date of Evaluation: 10/30/16 Time of Evaluation: 10:00 - Subjective Subjective: pt seen and examined at bedside this morning with attending. No acute events overnight. Pt currently in pleasant mood lying in bed comfortably, NAD. Tolerating PO intake w/o difficulty. OOB/ambulating with assistance of PT/ walker w/o difficulty. Pain well controlled. No new complaints. Denies fever/ chills, headaches, changes in vision, CP/SOB/Palpitations, N/C/D/C/, urinary symptoms, new onset numbness/tingling. Objective - Vital Signs/Intake and Output Vital Signs (last 24 hours): Temp Pulse Resp BP Pulse Ox 98.6 F 59 L 18 134/62 98 10/30/16 11:53 10/30/16 11:53 10/30/16 11:53 10/30/16 11:53 10/30/16 11:53 Intake and Output: 10/30/16 10/30/16 06:59 18:59 Intake Total 1510 Output Total 1150 Balance 360 - Medications Medications: Current Medications Famotidine (Pepcid) 20 mg PO DAILY [facility] Last Admin: 10/30/16 08:31 Dose: 20 mg Hydrochlorothiazide (Microzide) 12.5 mg PO DAILY [facility] Last Admin: 10/26/16 08:53 Dose: Not Given Cefazolin Sodium 1 gm/ Sodium (Chloride) 100 mls @ 100 mls/hr IVPB Q8 [facility] Last Admin: 10/30/16 08:29 Dose: 100 mls/hr Dexamethasone 4 mg/ Sodium (Chloride) 51 mls @ 102 mls/hr IVPB Q12 [facility] Last Admin: 10/30/16 08:30 Dose: 102 mls/hr Losartan Potassium (Cozaar) 100 mg PO DAILY [facility] Last Admin: 10/30/16 08:34 Dose: 100 mg Morphine Sulfate (Morphine) 2 mg IVP Q6 PRN PRN Reason: Pain, moderate (4-7) Naloxone HCl (Narcan) 0.1 mg IVP Q2M PRN PRN Reason: Opiate reversal Pravastatin Sodium (Pravachol) 20 mg PO DAILY [facility] Last Admin: 10/30/16 08:31 Dose: 20 mg - Labs Labs: 10/28/16 05:00 07/03/17 05:00 - Constitutional Appears: Non-toxic, No Acute Distress - Eye Exam Eye Exam: EOMI Pupil Exam: PERRL - ENT Exam ENT Exam: Mucous Membranes Moist - Respiratory Exam Respiratory Exam: Clear to Ausculation Bilateral, NORMAL BREATHING PATTERN. absent: Rales, Rhonchi, Wheezes - Cardiovascular Exam Cardiovascular Exam: REGULAR RHYTHM, RRR, +S1, +S2. absent: JVD, Rubs - GI/Abdominal Exam GI & Abdominal Exam: Soft, Normal Bowel Sounds. absent: Distended, Firm, Guarding, Rigid, Tenderness - Extremities Exam Extremities Exam: Normal Inspection. absent: Pedal Edema, Tenderness - Neurological Exam Neurological Exam: Alert, Awake, Oriented x3 Assessment and Plan - Assessment and Plan (Free Text) Assessment: 76 y/o female with a PMHx remarkable for HTN, HLD who is s/p L3-L5 fusion/ laminectomy. POD#6 Plan: 1) s/p L3-L5 Laminectomy POD#6 -pain control -PT, ambulation with caution -possible transfer to acute rehab for further tx 2) Hyperlipidemia -c/w home meds 3) Hypertension -c/w home meds 4) Sinus bradycardia -as per Dr. Andrews, pt is asymptomatic, no medical intervention at this point.
[2016-10-30 16:33] VITALS: BP 112/56; PULSE 66; RESP 20; TEMP 98.7
--- NOTE | 2016-11-11 15:06 | OP ---
Surgeon: Dr. Reyes Procedure Date: 10/23/2016 Painter Touch Up: Romana Holland helped me perform the surgery. She stayed throughout the case from beginning to end Anesthesiologist: Renita Mcgarry MD Anesthesia: General Pre operative diagnosis: Lumbar spondylosis and spinal instability Post operative diagnosis: the same Procedure: L3-L5 Laminectomy, L3-L5 pedicle screw fixation using amendia system , L3-L5 posterior lateral fusion Flouroscope used Procedure: Patient was brought into the operating room and was put under regular general anasthesia. Patient was placed on the table in a prone position. Back of the lumbar area thoroughly prepped in a sterile manner after marking for a skin incision for a lumbar lami fusion. Skin has been incised, and bleeding is controlled by a_bipolar handle turner. After using a Bovie handle turner paraspinal _muscles have been detached from lamina of L3-L5. _Deep retractors have been applied. At this~point by~using a _Traditional land mcgregor point of entry noted for the pedicles of L3-L5, initial a K-wire, later _ drill has been _usd to enter into the pedicles. Polyaxial titanium screws of the Amendia system have been placed. Titanium rods have been placed. cap nuts are being used in order to secure them. At this point, all this has been done with a fluoroscopic guided imaging. By using the Leksell-Ronguer the spinous process L3-L5~have been removed, by using high speed drill the lamina have drilled to egg shell thickness. . There is a significant decrease in intralaminal distance with medial facetal hypertrophy and all the thinned out bone has been removed. There was an incident of durotomy noted that has been closed with 4 0 Nurolon and a piece of muscleplaced along with fibrin glue. Once decompression has been achieved l3-l5l posterolateral fusion. After hemostasis was achieved kavitha drain placed and the muscle and fascia have been closed using 1 vicryl and skin has been closed with 20 silk and th MAYRA drain has been connected to a bile bag. Patient tolerated the procedure. After the procedure the patient was mobilized to the recovery room in stable condition. Doc Reyes MD [facility]
--- NOTE | 2016-11-20 11:17 | PCM.OP ---
Operative Report - Operative Report Date of Surgery/Procedure: 10/23/16 (k) Time of Surgery/Procedure: 01:00 (k) Surgeon: Dr. Reyes Fruit Picker: Dr. Romana Saba Pre-Operative Diagnosis: Lumbar spondylosis and spinal instability Post-Operative Diagnosis: Lumbar spondylosis and spinal instability Indication for Surgery: L3-L5 Laminectomy, L3-L5 parietal screw fixation using amendia system, L3-L5 posterior lateral fusion Procedure/Operation Description: Romana Saba helped me perform the surgery. She stayed throughout the case from beginning to end. Patient was brought into the operating room and was put under regular general anasthesia. Patient was placed on the table in a prone position. Back of the lumbar area thoroughly prepped and draped in a sterile manner after marking for a skin incision for a lumbar lami fusion. Skin has been incised, dyskinesia being controlled by ____ technical support intern. After using a Bovie technical support intern paraspinals had been detached. Attachments of spinal lamina of L3-L5. Deep ducts have been applied. At this point, by using a ____ and non-landmark point of entry has been noted for the pedicles of 3, 4, 5, initially K-wire, later glue has been on into the pedicles. Polyaxial titanium screws of the Amendia system have been placed. Titanium rods have been placed. Cabinets have being used in order to secure them. At this point, all this has been done with a fluoroscopic guided imaging. By using the Leksell-Ronguer the spinous process 3, 4, 5 have been removed, by using ____ the lamina have trimmed of extra thickness. There is a significant decrease in intralaminal distance with medial torsional hypertrophy and all the thinner bone ligament has been removed. There was an incident of durotomy noted that has been closed with 4-0 Nylon and a piece of muscle soaked in fibrin glue. Once decompression has been achieved let us fix a us a joint bone ___ demineralized bone placed area achieved posterolateral fusion. After hemostasis was achieved the attention was then placed at the wound____ skin incision. After that, muscle sensation 1 vicryl, subcutaneous 3 vicryl skin has been closed with 2-0 silk and the MAYRA drain has been collected with a bile bag. Patient tolerated the procedure. After the procedure the patient was mobilized to the recovery room in stable condition. Discharge & Condition: Stable
--- NOTE | 2017-01-07 14:15 | H.ACR ---
ADMINISTRATIVE CLOSURE OF RECORDS Date of Note: 01/07/17 Physician's Name: Arin Phan This record is being administratively closed for the following reason: [ ] The physician on . [ ] The physician is no longer available to complete medical records physician resigned on . [ X] The person responsible is no longer [facility] employee as of 01/26/2016_. [ ] The person responsible cannot be identified. [ ] The records has missing and/or incomplete forms. The following documents were not electronically signed: [ ] History & Physical [ ] Discharge Summary [ ] Operative Report(s) [ ] Progress Notes(s) [ X] Orders(s) [ ] Other Missing/Incomplete forms: [ ] History & Physical [ ] Discharge Summary [ ] Operative Report(s) [ ] Progress Notes(s) [ X] Orders(s) x3 [ ] Other Approved for filing by Medical Executive Committee/Medical Records Committee on __01/07/17____. Thank you, [facility] PLASTERER SPOT Ana Roberto MD, MS Marbleizing Machine Tender [facility] Date of Note: 01/07/17 Physician's Name: Arin Phan This record is being administratively closed for the following reason: [ ] The physician on . [ ] The physician is no longer available to complete medical records physician resigned on . [ X] The person responsible is no longer [facility] employee as of 01/26/2016_. [ ] The person responsible cannot be identified. [ ] The records has missing and/or incomplete forms. The following documents were not electronically signed: [ ] History & Physical [ ] Discharge Summary [ ] Operative Report(s) [ ] Progress Notes(s) [ X] Orders(s) [ ] Other Missing/Incomplete forms: [ ] History & Physical [ ] Discharge Summary [ ] Operative Report(s) [ ] Progress Notes(s) [ X] Orders(s) x3 [ ] Other Approved for filing by Medical Executive Committee/Medical Records Committee on __01/07/17____. Thank you, [facility] PLASTERER SPOT Ana Roberto MD, MS Marbleizing Machine Tender [facility]
== END 2016-10-30 16:30 | DRG 460 ==
LOC: H.OPSURG 06:04 → H.ICU/CCU 13:06 → H.OPSURG 16:36 → H.TEL 10-25 16:01
PROVIDERS: ADMIT Family Medicine; ATTEND Family Medicine
PROC: 0SG1071 Fusion of 2 or more Lumbar Vertebral Joints with Autologous Tissue Substitute, Posterior Approach, Posterior Column, Open Approach (ICD-10-PCS; principal; 2016-10-23 07:45)
DX: M47.26 Other spondylosis with radiculopathy, lumbar region (principal); R00.1 Bradycardia, unspecified; I10 Essential (primary) hypertension; G97.41 Accidental puncture or laceration of dura during a procedure; R20.9 Unspecified disturbances of skin sensation; K59.00 Constipation, unspecified; E78.5 Hyperlipidemia, unspecified; Y83.8 Other surgical procedures as the cause of abnormal reaction of the patient, or of later complication, without mention of misadventure at the time of the procedure; M53.2X6 Spinal instabilities, lumbar region

== ENCOUNTER 2016-10-30 12:06 | Inpatient (IN) | payer MEDICARE, BC ==
[2016-10-30 17:10] VITALS: BMI 30.8
--- NOTE | 2016-10-30 17:48 | CP.PCM.PN ---
Subjective - Date & Time of Evaluation Date of Evaluation: 10/30/16 Time of Evaluation: 17:47 - Subjective Subjective: s/p lumbar surgery Objective - Medications Medications: Current Medications Famotidine (Pepcid) 20 mg PO DAILY [facility] Dexamethasone 4 mg/ Sodium (Chloride) 51 mls @ 102 mls/hr IVPB Q12 [facility] Losartan Potassium (Cozaar) 100 mg PO DAILY [facility] Pravastatin Sodium (Pravachol) 20 mg PO DAILY [facility] Physiatry Overall Plan of Care - Overall Plan of Care Estimated Length of Stay in Weeks: 2 Rehab Impairment: Mobility, Gait, Balance Etiologic Diagnosis: Other (lumbar surgery) Rehab/Medical Prognosis: Good - Anticipated Interventions Physical Therapy:: Yes Occupational Therapy:: Yes Speech Therapy:: No Recreational Therapy:: Yes - Therapy Goals Bed Mobility: Supervision Ambulation: Supervision Functional Positional Changes:: Supervision - Discharge Plan Discharge Destination: Home
--- NOTE | 2016-10-30 17:59 | CP.PCM.CON ---
History of Present Illness - History of Present Illness History of Present Illness: Dr Oakley PMR consultation on Cookie Parra, born 1940, who has been admitted to [facility] acute rehabilitation following a lumbar L3-[address] Reyes. She had over 5 years of severe pain which was mostly in the buttock and radiating into bilateral lower extremities. She has had numbness in the LE as well. Post op she notes no pain and just some R>L lower extremity numbness. Review of Systems - Constitutional Constitutional: absent: Anorexia, Chills, Daytime Sleepiness - EENT Eyes: absent: Blind Spots Ears: absent: Decreased Hearing Nose/Mouth/Throat: absent: Nasal Congestion - Cardiovascular Cardiovascular: absent: Chest Pain, Rapid Heart Rate - Respiratory Respiratory: absent: Cough, Dyspnea - Gastrointestinal Gastrointestinal: absent: Abdominal Pain, Constipation - Musculoskeletal Musculoskeletal: absent: Back Pain - Integumentary Integumentary: Other (surgical incision) - Neurological Neurological: Numbness. absent: Abnormal Movements - Psychiatric Psychiatric: absent: Anxiety Past Patient History - Infectious Disease Hx of Infectious Diseases: None - Tetanus Immunizations Tetanus Immunization: Unknown - Past Medical History & Family History Past Medical History?: Yes - Past Social History Smoking Status: Never Smoked Chewing Tobacco Use: No Alcohol: None Drugs: Denies Home Situation {Lives}: With Family - CARDIAC Hx Cardiac Disorders: Yes Hx Hypercholesterolemia: Yes Hx Hypertension: Yes - PULMONARY Hx Respiratory Disorders: No - NEUROLOGICAL Hx Neurological Disorder: No - HEENT Hx HEENT Problems: No - RENAL Hx Chronic Kidney Disease: No - ENDOCRINE/METABOLIC Hx Endocrine Disorders: No - HEMATOLOGICAL/ONCOLOGICAL Hx Blood Disorders: No - INTEGUMENTARY Hx Dermatological Problems: No - MUSCULOSKELETAL/RHEUMATOLOGICAL Hx Arthritis: Yes Hx Rheumatoid Arthritis: Yes - GASTROINTESTINAL Hx Gastrointestinal Disorders: No - GENITOURINARY/GYNECOLOGICAL Hx Genitourinary Disorders: No - PSYCHIATRIC Hx Psychophysiologic Disorder: No - SURGICAL HISTORY Hx Surgeries: Yes Other/Comment: REMOVAL LEFT OVARY 1970 - ANESTHESIA Hx Anesthesia: Yes Hx Anesthesia Reactions: No Hx Malignant Hyperthermia: No Meds Allergies/Adverse Reactions: Allergies Allergy/AdvReac Type Severity Reaction Status Date / Time No Known Allergies Allergy Verified 10/30/16 17:16 - Medications Medications: Current Medications Acetaminophen/Codeine Phosphate (Tylenol/Codeine 300 Mg/30 Mg) 1 tab PO Q4 PRN PRN Reason: pain 4-10/10 Famotidine (Pepcid) 20 mg PO DAILY [facility] Dexamethasone 4 mg/ Sodium (Chloride) 51 mls @ 102 mls/hr IVPB Q12 [facility] Losartan Potassium (Cozaar) 100 mg PO DAILY [facility] Pravastatin Sodium (Pravachol) 20 mg PO DAILY [facility] Physical Exam - Constitutional Appears: Well, Non-toxic, No Acute Distress - Head Exam Head Exam: ATRAUMATIC, NORMAL INSPECTION, NORMOCEPHALIC - Eye Exam Eye Exam: EOMI - ENT Exam ENT Exam: Mucous Membranes Moist - Respiratory Exam Respiratory Exam: NORMAL BREATHING PATTERN - Cardiovascular Exam Cardiovascular Exam: REGULAR RHYTHM - GI/Abdominal Exam GI & Abdominal Exam: Normal Bowel Sounds. absent: Distended - Extremities Exam Extremities exam: Positive for: full ROM. Negative for: calf tenderness, pedal edema - Neurological Exam Neurological exam: Alert, CN II-XII Intact, Oriented x3 - Psychiatric Exam Psychiatric exam: Normal Affect, Normal Mood - Skin Skin Exam: Warm (lumbar incision with sutures CDI, drain site still with drain) Assessment & Plan - Assessment and Plan (Free Text) Assessment: PT/OT to continue to help increase functional independence Team conference for d/c planning Pain: controlled, will give tylenol #3 Vascular: no evidence of DVT GI: No evidence of constipation or diarrhea Patient is an excellent acute rehabilitation candidate and will have focused pain management, wound care, PT, OT and recreational therapy to help facilitate a safe and appropriate d/c plan impairment code 04.130
[2016-10-30] MEDS: Acetaminophen-Codeine 300/30 mg Tab PO PRN (19:02)
[2016-10-30] MEDS ORDERED: DEXAMETHASONE IVPB SCH (21:00)
[2016-10-30] MEDS ORDERED: SODIUM CHLORIDE IVPB SCH (21:00)
[2016-10-30] MEDS ORDERED: Dexamethasone 4 mg/1 ml IVPB SCH (21:00)
[2016-10-31] MEDS: Pravastatin Sodium 20 MG TAB PO SCH (08:36)
[2016-10-31] MEDS: Acetaminophen-Codeine 300/30 mg Tab PO PRN (08:39)
--- NOTE | 2016-10-31 08:52 | CP.PCM.HP ---
History of Present Illness - History of Present Illness History of Present Illness: 76 Y/O female with a PMHx of HTN (controlled) and HLD (controlled) who is admitted to acute rehab s/p L3-L5 laminectomy and fusion on 10/24/2016. Pt tolerated the procedure well and has been moved for rehab. She has a history of chronic low back pain with b/l LE numbness that failed conservative managment and required surgical intervention. No new complaints since transfer and the pt is in good spirits. Reports mild pain controlled with medications as well as some b/l LE numbness that was present before the surgery. Denies fever/chills, headaches, visual disturbances, CP/SOB/LORA/palpitations, N/V/D/C, urinary symptoms. PMD: Dr. Cuadra PMHx: HTN, HLD Meds: Losartan, Pravastatin PSurgHx: ovarian cyst removal 1978 ALL: NKDA SocialHx: denies ETOH, tobacco, drug abuse Present on Admission - Present on Admission Any Indicators Present on Admission: No Review of Systems - Review of Systems All systems: reviewed and no additional remarkable complaints except - Constitutional Constitutional: As Per HPI Past Patient History - Infectious Disease Hx of Infectious Diseases: None - Tetanus Immunizations Tetanus Immunization: Unknown - Past Medical History & Family History Past Medical History?: Yes - Past Social History Smoking Status: Never Smoked Chewing Tobacco Use: No Alcohol: None Drugs: Denies Home Situation {Lives}: With Family - CARDIAC Hx Cardiac Disorders: Yes Hx Hypercholesterolemia: Yes Hx Hypertension: Yes - PULMONARY Hx Respiratory Disorders: No - NEUROLOGICAL Hx Neurological Disorder: No - HEENT Hx HEENT Problems: No - RENAL Hx Chronic Kidney Disease: No - ENDOCRINE/METABOLIC Hx Endocrine Disorders: No - HEMATOLOGICAL/ONCOLOGICAL Hx Blood Disorders: No - INTEGUMENTARY Hx Dermatological Problems: No - MUSCULOSKELETAL/RHEUMATOLOGICAL Hx Arthritis: Yes Hx Rheumatoid Arthritis: Yes - GASTROINTESTINAL Hx Gastrointestinal Disorders: No - GENITOURINARY/GYNECOLOGICAL Hx Genitourinary Disorders: No - PSYCHIATRIC Hx Psychophysiologic Disorder: No - SURGICAL HISTORY Hx Surgeries: Yes Other/Comment: REMOVAL LEFT OVARY 1970 - ANESTHESIA Hx Anesthesia: Yes Hx Anesthesia Reactions: No Hx Malignant Hyperthermia: No Meds Allergies/Adverse Reactions: Allergies Allergy/AdvReac Type Severity Reaction Status Date / Time No Known Allergies Allergy Verified 10/30/16 17:16 Physical Exam - Constitutional Appears: Well, Non-toxic, No Acute Distress - Head Exam Head Exam: ATRAUMATIC, NORMOCEPHALIC - Eye Exam Eye Exam: EOMI. absent: Conjunctival injection, Scleral icterus Pupil Exam: PERRL - ENT Exam ENT Exam: Mucous Membranes Moist - Neck Exam Neck exam: Positive for: Full Rom. Negative for: Tenderness - Respiratory Exam Respiratory Exam: Clear to Auscultation Bilateral, NORMAL BREATHING PATTERN. absent: Rales, Rhonchi, Wheezes - Cardiovascular Exam Cardiovascular Exam: REGULAR RHYTHM, RRR, +S1, +S2. absent: Tachycardia, JVD, Rubs, Systolic Murmur - GI/Abdominal Exam GI & Abdominal Exam: Normal Bowel Sounds, Soft. absent: Tenderness - Extremities Exam Extremities exam: Positive for: pedal pulses present. Negative for: calf tenderness, pedal edema Additional comments: decreased sensation R/L, pt reports this is chronic prior to her surgery and improving. - Neurological Exam Neurological exam: Alert, CN II-XII Intact, Oriented x3 - Psychiatric Exam Psychiatric exam: Normal Affect, Normal Mood Results - Vital Signs Recent Vital Signs: Last Vital Signs Temp 98.1 F 10/31/16 07:56 Pulse 56 L 10/31/16 08:36 Resp 20 10/31/16 07:56 BP 135/62 10/31/16 08:36 Pulse Ox 100 10/31/16 07:56 Assessment & Plan (1) S/P laminectomy Assessment and Plan: -s/p L3-L5 Laminectomy on 10/25/2016 -admitted to Acute Rehab for further rehab and tx -pain control -pt is still draining, as per Dr. Reyes, drain to be removed Status: Acute Priority: Medium (2) Hypertension Assessment and Plan: -c/w home meds Status: Chronic Priority: Low (3) Hyperlipidemia Assessment and Plan: -c/w home meds Status: Chronic Priority: Low
--- NOTE | 2016-10-31 15:06 | CP.PCM.PN ---
Subjective - Date & Time of Evaluation Date of Evaluation: 10/31/16 Time of Evaluation: 08:00 - Subjective Subjective: pt without c/o, pre op LBP and LE pain resolved,residual LE paresthesias,OOB/ Amb with PT,decreasing lumbar drainage,denies positional CHIN,n/v or lightheadedness,voiding w/o c/o,+ flatus,katelin PO,on decadron taper. Objective - Vital Signs/Intake and Output Vital Signs (last 24 hours): Temp Pulse Resp BP Pulse Ox 98.1 F 56 L 20 135/62 100 10/31/16 07:56 10/31/16 08:36 10/31/16 07:56 10/31/16 08:36 10/31/16 07:56 Intake and Output: 10/31/16 10/31/16 06:59 18:59 Output Total 210 80 Balance -210 -80 - Medications Medications: Current Medications Acetaminophen/Codeine Phosphate (Tylenol/Codeine 300 Mg/30 Mg) 1 tab PO Q4 PRN PRN Reason: pain 4-02/04 Last Admin: 10/31/16 08:39 Dose: 1 tab Dexamethasone (Decadron) 2 mg PO Q12 [facility] Stop: 11/02/16 09:01 Last Admin: 10/31/16 09:48 Dose: 2 mg Dexamethasone (Decadron) 1 mg PO DAILY [facility] Stop: 11/06/16 09:01 Famotidine (Pepcid) 20 mg PO DAILY [facility] Last Admin: 10/31/16 08:36 Dose: 20 mg Losartan Potassium (Cozaar) 100 mg PO DAILY [facility] Last Admin: 10/31/16 08:36 Dose: 100 mg Pravastatin Sodium (Pravachol) 20 mg PO DAILY [facility] Last Admin: 10/31/16 08:36 Dose: 20 mg - Constitutional Appears: Well, Non-toxic, No Acute Distress - Head Exam Head Exam: ATRAUMATIC, NORMAL INSPECTION, NORMOCEPHALIC - Eye Exam Eye Exam: EOMI, Normal appearance Pupil Exam: NORMAL ACCOMODATION - ENT Exam ENT Exam: Mucous Membranes Moist - Neck Exam Neck Exam: Normal Inspection - Respiratory Exam Respiratory Exam: Clear to Ausculation Bilateral - Cardiovascular Exam Cardiovascular Exam: REGULAR RHYTHM, +S1, +S2 - GI/Abdominal Exam GI & Abdominal Exam: Soft - Rectal Exam Rectal Exam: Deferred - Extremities Exam Extremities Exam: Normal Inspection Additional comments: calves soft,NT - Back Exam Additional comments: wounds C/D/I,serosanguinos drainage in bile bag,sutures patent,after d/w Dr. Reyes,drain removed and 3.0 nylon stitch placed to drain puncture site after skin cleansed with chloraprep,3cc 1% Lidocaine infiltrated into surrounding drain site ST,dressing changed,katelin well - Neurological Exam Neurological Exam: Alert, Oriented x3 Additional comments: GRIDER x 4 antigravity with good strength,sensory grossly intact - Psychiatric Exam Psychiatric exam: Normal Affect, Normal Mood - Skin Skin Exam: Dry, Intact Assessment and Plan - Assessment and Plan (Free Text) Assessment: 76 yo female POD#8 Decompressive Laminectomy L3-5 and Instrumented Fusion/Dural Tear with Duroplasty/Neurologically stable/Hx Htn Plan: drain removed,decadron taper,pain control,cont Rx and monitor pt,all d/w Dr. Reyes
[2016-11-01] MEDS: Pravastatin Sodium 20 MG TAB PO SCH (08:32)
--- NOTE | 2016-11-01 13:17 | CP.PCM.PN ---
Subjective - Date & Time of Evaluation Date of Evaluation: 11/01/16 Time of Evaluation: 13:16 - Subjective Subjective: Patient is doing very well extremely happy with her stay to this point minimal pain issues currently good appetite and function improving Patient continues to be an excellent acute rehabilitation candidate and will have continued focused pain management, wound care, PT, OT and recreational therapy to help facilitate a safe and appropriate d/c plan Objective - Vital Signs/Intake and Output Vital Signs (last 24 hours): Temp Pulse Resp BP Pulse Ox 97.7 F 82 20 120/70 98 11/01/16 08:30 11/01/16 10:00 11/01/16 08:30 11/01/16 10:00 11/01/16 08:30 - Medications Medications: Current Medications Acetaminophen/Codeine Phosphate (Tylenol/Codeine 300 Mg/30 Mg) 1 tab PO Q4 PRN PRN Reason: pain 4-02/04 Last Admin: 10/31/16 08:39 Dose: 1 tab Dexamethasone (Decadron) 2 mg PO Q12 [facility] Stop: 11/02/16 09:01 Last Admin: 11/01/16 10:00 Dose: 2 mg Dexamethasone (Decadron) 1 mg PO DAILY [facility] Stop: 11/06/16 09:01 Famotidine (Pepcid) 20 mg PO DAILY [facility] Last Admin: 11/01/16 08:32 Dose: 20 mg Losartan Potassium (Cozaar) 100 mg PO DAILY [facility] Last Admin: 11/01/16 10:00 Dose: 100 mg Pravastatin Sodium (Pravachol) 20 mg PO DAILY [facility] Last Admin: 11/01/16 08:32 Dose: 20 mg
[2016-11-02] MEDS: Pravastatin Sodium 20 MG TAB PO SCH (08:12)
[2016-11-02] MEDS ORDERED: Acetaminophen-Codeine 300/30 mg Tab PO PRN (18:28)
[2016-11-03] MEDS: Pravastatin Sodium 20 MG TAB PO SCH (08:20)
[2016-11-04] MEDS: Pravastatin Sodium 20 MG TAB PO SCH (08:04)
--- NOTE | 2016-11-04 16:13 | CP.PCM.PN ---
Subjective - Date & Time of Evaluation Date of Evaluation: 11/04/16 Time of Evaluation: 16:10 - Subjective Subjective: Patient seen in room continues to make good gains had some low BP today We discussed her normal diet and she definitely does not abide by a 2gNA diet I will change her to a regular diet with no added salt she is aware of the need for a limited NA intake Objective - Vital Signs/Intake and Output Vital Signs (last 24 hours): Temp Pulse Resp BP Pulse Ox 97.9 F 76 18 97/58 L 97 11/04/16 08:46 11/04/16 12:07 11/04/16 08:46 11/04/16 12:07 11/03/16 21:00 - Medications Medications: Current Medications Acetaminophen/Codeine Phosphate (Tylenol/Codeine 300 Mg/30 Mg) 1 tab PO Q4 PRN PRN Reason: pain 4-02/04 Dexamethasone (Decadron) 1 mg PO DAILY [facility] Stop: 11/06/16 09:01 Last Admin: 11/04/16 08:04 Dose: 1 mg Famotidine (Pepcid) 20 mg PO DAILY [facility] Last Admin: 11/04/16 08:03 Dose: 20 mg Pravastatin Sodium (Pravachol) 20 mg PO DAILY [facility] Last Admin: 11/04/16 08:04 Dose: 20 mg
[2016-11-05] MEDS: Pravastatin Sodium 20 MG TAB PO SCH (08:18)
[2016-11-05] MEDS ORDERED: Ergocalciferol 50,000 Intl Units Cap PO SCH (10:00)
--- NOTE | 2016-11-05 18:15 | CP.PCM.PN ---
Subjective - Date & Time of Evaluation Date of Evaluation: 11/05/16 Time of Evaluation: 18:14 - Subjective Subjective: Patient seen in room doing well denies sob/cp incision CDI with sutures present continues to excel in therapies continue current care Objective - Vital Signs/Intake and Output Vital Signs (last 24 hours): Temp Pulse Resp BP Pulse Ox 98.3 F 80 21 104/61 99 11/05/16 08:13 11/05/16 08:13 11/05/16 08:13 11/05/16 08:13 11/05/16 08:13 - Medications Medications: Current Medications Acetaminophen/Codeine Phosphate (Tylenol/Codeine 300 Mg/30 Mg) 1 tab PO Q4 PRN PRN Reason: pain 4-02/04 Dexamethasone (Decadron) 1 mg PO DAILY [facility] Stop: 11/06/16 09:01 Last Admin: 11/05/16 08:18 Dose: 1 mg Ergocalciferol (Drisdol 50,000 Intl Units Cap) 1 cap PO Q7D [facility] Last Admin: 11/05/16 12:17 Dose: 1 cap Famotidine (Pepcid) 20 mg PO DAILY [facility] Last Admin: 11/05/16 08:18 Dose: 20 mg Home Med (Leflunomide [Arava]) 20 mg PO DAILY [facility] Pravastatin Sodium (Pravachol) 20 mg PO DAILY [facility] Last Admin: 11/05/16 08:18 Dose: 20 mg
[2016-11-06 08:09] VITALS: RESP 20
[2016-11-06] MEDS: Pravastatin Sodium 20 MG TAB PO SCH (08:37)
--- NOTE | 2016-11-06 12:09 | PSY.TMCNF ---
Nursing - Vital Signs Vital Signs (Last 8 hours): Vital Signs 11/06/16 11/06/16 08:09 10:57 Temperature 98.2 F 98.2 F Pulse Rate 59 L 59 L Respiratory 20 20 Rate Blood Pressure 111/61 111/61 O2 Sat by Pulse 97 Oximetry Pain: 0 - Precautions: Precautions: Fall Prevention - Medications/Other Issues Comment: Spinal Precautions - Consults Comment: Dr. Oakley - Skin Incision Site: Lower back Dressing Status: Clean, Dry, Intact Incision: Sutures Intact Incision Line Treatment: Cleanse with NSS cover with dry gauze daily - Toileting Toileting: Modified Independent - Bladder Management Bladder Pattern: Normal Voiding Method: Toilet Bladder Management: Modified Independent Frequency of Accidents: 0 - Bowel Management Bowel Pattern: Normal Bowel Management: Modified Independent Frequency of Accidents: 0 - Transfers Transfers: Supervision - ADL's ADL's: Supervision - Pain Management Comments: Tylenol #3 PRN, last used: 10/31/2016 - Patient/Family Teaching Comments: Care post Laminectomy and safety precautions - Goals/Time Frame Comments: Per multidisciplinary care plan and goals Physical Therapy - Bed Mobility Bed Mobility: Supervision, Verbal Cues - Transfers Wheelchair to Mat: Supervision, Verbal Cues Sit to Stand: Supervision, Verbal Cues Comment: SPC/RW - Ambulation Level of Assistance: Modified Independent, Supervision, Verbal Cues Distance (ft.): 250 Assistive Devices: Rolling Walker - Stair Negotiation Stairs: Level of Assistance: Supervision Stairs: Assistive Devices: Right Handrail, Single point cane - Standing Balance Static Stand: Supervision Dynamic Stand: Supervision, Contact Guard Assist - Pain Comment: Pt without complaints of pain - Insight/Carryover Insight/Carryover: Good - Patient/Family Education Comment: Spinal precautions, Plan of care, role of OT, AE/DME, safety with functional transfers, fall prevention, energy conservation, kitchen mobility - Assessment/Plan Assessment: Pt progressing with OT, completing ADLs at S level with exception of bathing, requiring MIN A for LE to maintain spinal precautions. Pt is progressing towards goal level for safe discharge home with son available for intermittent support. - Goals Timeframe: 1 week Goals: MOD I with toilet txfers. MOD I with tub txfers utilizing tub bench. MOD I with UE and LE dressing. MOD I with toileting. MOD I with bathing - Provider Therapist: Zulma CAMARA RN CRRN Occupational Therapy - Arousal/Attention/Orientation Patient Orientation: Person, Place, Time - ADL/IADL Self Feeding: Independent Grooming: Set-up Help Bathing-Upper Extremity: Set-up Help Bathing-Lower Extremity: Verbal Cues, Minimal Assistance Dressing-Upper Extremity: Set-up Help Dressing-Lower Extremity: Supervision, Verbal Cues, Set-up Help Homemaking: Minimal Assistance - Sitting Balance Static Sitting: Independent without upper extremity support Dynamic Sitting: Reaches across midline, Reaches out of base of support, Reaches within base of support - Transfers Wheelchair to Bed Transfers: Supervision, Verbal Cues, Set-up Help Toilet Transfers: Supervision, Verbal Cues, Set-up Help Tub Transfers: Supervision, Verbal Cues, Set-up Help - Upper Extremity Status Right Upper Extremity Comment: ROM WFL Left Upper Extremity Comment: ROM WFL - Pain Comment: Pt without complaints of pain - Insight/Carryover Insight/Carryover: Good - Patient/Family Education Comment: Spinal precautions, Plan of care, role of OT, AE/DME, safety with functional transfers, fall prevention, energy conservation, kitchen mobility - Assessment/Plan Assessment: Pt progressing with OT, completing ADLs at S level with exception of bathing, requiring MIN A for LE to maintain spinal precautions. Pt is progressing towards goal level for safe discharge home with son available for intermittent support. - Goals Timeframe: 1 week Goals: MOD I with toilet txfers. MOD I with tub txfers utilizing tub bench. MOD I with UE and LE dressing. MOD I with toileting. MOD I with bathing - Provider Therapist: Chiquita Lakhani Speech Therapy - Plan Assessment: Pt progressing with OT, completing ADLs at S level with exception of bathing, requiring MIN A for LE to maintain spinal precautions. Pt is progressing towards goal level for safe discharge home with son available for intermittent support. Recreational Therapy - Participation Participation: Participates in Individual and/or Group Sessions, Monitors His/ Her Own Leisure Time - Attendance Attendance: 3-5 times per week - Activities Leisure Activities: Cards and Games - Socialization Level of Socialization: Initiates/interacts freely with care givers and peer - Diversional Time Diversional Time: crossword puzzles, reading the newspaper - Assessment Assessment/Plan: Pt progressing with OT, completing ADLs at S level with exception of bathing, requiring MIN A for LE to maintain spinal precautions. Pt is progressing towards goal level for safe discharge home with son available for intermittent support. - Provider Therapist: Hoa Donis, [facility] #[id number] Nutrition - Current Diet Current Diet/ Supplement/ Feedings: 2 gram Na low fat/low cholesterol - Appetite Percent Meal Consumed: 75-100% - Comments Comments: Care post Laminectomy and safety precautions - Assessment/Goals/Time Frame Assessment/Goals/Time Frame: Spinal Precautions - Provider Provider: Cesia Bustos RD Case Management - Discharge Plan Discharge Plan: Home with significant other/family Rehabilitation Plan - Treatment Plan Treatment Plan: Physical Therapy, Occupational Therapy, Dietary, Pain Management , Patient/Family Education - Discharge Plan Estimated Date of Discharge: 11/09/16 Discharge to: Home
--- NOTE | 2016-11-06 17:52 | CP.PCM.PN ---
Subjective - Date & Time of Evaluation Date of Evaluation: 11/06/16 Time of Evaluation: 17:51 - Subjective Subjective: Patient seen in room in good spirits somewhat anxious to go to [place] and is perfecting the walker ambulation PT/OT to continue to help increase functional independence Team conference for d/c planning Pain: controlled Vascular: no evidence of DVT GI: No evidence of constipation or diarrhea Patient continues to be an excellent acute rehabilitation candidate and will have continued PT, OT and recreational therapy to help facilitate a safe and appropriate d/c plan The patients plan was discussed in great detail in team conference. This was then discussed with the patient at length. The discussions directly impact on the patients plan of care. Please see the note for more details Objective - Vital Signs/Intake and Output Vital Signs (last 24 hours): Temp Pulse Resp BP Pulse Ox 98.2 F 59 L 20 111/61 97 11/06/16 10:57 11/06/16 10:57 11/06/16 10:57 11/06/16 10:57 11/06/16 08:09 - Medications Medications: Current Medications Acetaminophen/Codeine Phosphate (Tylenol/Codeine 300 Mg/30 Mg) 1 tab PO Q4 PRN PRN Reason: pain 4-10 Ergocalciferol (Drisdol 50,000 Intl Units Cap) 1 cap PO Q7D [facility] Last Admin: 11/05/16 12:17 Dose: 1 cap Famotidine (Pepcid) 20 mg PO DAILY [facility] Last Admin: 11/06/16 08:37 Dose: 20 mg Home Med (Leflunomide [Arava]) 20 mg PO DAILY [facility] Pravastatin Sodium (Pravachol) 20 mg PO DAILY [facility] Last Admin: 11/06/16 08:37 Dose: 20 mg
[2016-11-07] MEDS: Pravastatin Sodium 20 MG TAB PO SCH (08:33)
[2016-11-08 07:32] VITALS: TEMP 98.1; O2SAT 97
[2016-11-08] MEDS: Pravastatin Sodium 20 MG TAB PO SCH (08:34)
[2016-11-08] MEDS ORDERED: Acetaminophen-Codeine 300/30 mg Tab PO PRN (10:43)
--- NOTE | 2016-11-08 13:15 | CP.PCM.PN ---
Subjective - Date & Time of Evaluation Date of Evaluation: 11/08/16 Time of Evaluation: 13:14 - Subjective Subjective: Patient seen in room set for d/c home tomorrow has had sutures out and the incision looks good no pain at all very happy with progress and results of surgery Objective - Vital Signs/Intake and Output Vital Signs (last 24 hours): Temp Pulse Resp BP Pulse Ox 98.1 F 78 20 153/83 H 97 11/08/16 07:31 11/08/16 07:31 11/08/16 07:31 11/08/16 07:31 11/08/16 07:31 - Medications Medications: Current Medications Acetaminophen/Codeine Phosphate (Tylenol/Codeine 300 Mg/30 Mg) 1 tab PO Q4 PRN PRN Reason: pain 4-10 Ergocalciferol (Drisdol 50,000 Intl Units Cap) 1 cap PO Q7D [facility] Last Admin: 11/05/16 12:17 Dose: 1 cap Famotidine (Pepcid) 20 mg PO DAILY [facility] Last Admin: 11/08/16 08:34 Dose: 20 mg Home Med (Leflunomide [Arava]) 20 mg PO DAILY [facility] Last Admin: 11/08/16 10:50 Dose: Not Given Pravastatin Sodium (Pravachol) 20 mg PO DAILY [facility] Last Admin: 11/08/16 08:34 Dose: 20 mg
[2016-11-09] MEDS: Pravastatin Sodium 20 MG TAB PO SCH (08:29)
--- NOTE | 2016-11-09 09:11 | CP.PCM.PN ---
Subjective - Date & Time of Evaluation Date of Evaluation: 10/31/16 Time of Evaluation: 09:40 - Subjective Subjective: Patient has some pain in the LS area Participates with PT still with some drain. Has no fever Objective - Vital Signs/Intake and Output Vital Signs (last 24 hours): Temp Pulse Resp BP Pulse Ox 98.1 F 63 20 110/60 97 11/09/16 08:35 11/09/16 08:35 11/09/16 08:35 11/09/16 08:35 11/09/16 08:35 - Medications Medications: Current Medications Acetaminophen/Codeine Phosphate (Tylenol/Codeine 300 Mg/30 Mg) 1 tab PO Q4 PRN PRN Reason: pain 4-02/04 Ergocalciferol (Drisdol 50,000 Intl Units Cap) 1 cap PO Q7D [facility] Last Admin: 11/05/16 12:17 Dose: 1 cap Famotidine (Pepcid) 20 mg PO DAILY [facility] Last Admin: 11/09/16 08:29 Dose: 20 mg Home Med (Leflunomide [Arava]) 20 mg PO DAILY [facility] Last Admin: 11/09/16 08:29 Dose: 20 mg Pravastatin Sodium (Pravachol) 20 mg PO DAILY [facility] Last Admin: 11/09/16 08:29 Dose: 20 mg
--- NOTE | 2016-11-09 09:12 | CP.PCM.PN ---
Subjective - Date & Time of Evaluation Date of Evaluation: 11/07/16 Time of Evaluation: 09:30 - Subjective Subjective: Patient is doing well with PT Had an episode of hypotension with current BP meds Objective - Vital Signs/Intake and Output Vital Signs (last 24 hours): Temp Pulse Resp BP Pulse Ox 98.1 F 63 20 110/60 97 11/09/16 08:35 11/09/16 08:35 11/09/16 08:35 11/09/16 08:35 11/09/16 08:35 - Medications Medications: Current Medications Acetaminophen/Codeine Phosphate (Tylenol/Codeine 300 Mg/30 Mg) 1 tab PO Q4 PRN PRN Reason: pain 4-02/04 Ergocalciferol (Drisdol 50,000 Intl Units Cap) 1 cap PO Q7D [facility] Last Admin: 11/05/16 12:17 Dose: 1 cap Famotidine (Pepcid) 20 mg PO DAILY [facility] Last Admin: 11/09/16 08:29 Dose: 20 mg Home Med (Leflunomide [Arava]) 20 mg PO DAILY [facility] Last Admin: 11/09/16 08:29 Dose: 20 mg Pravastatin Sodium (Pravachol) 20 mg PO DAILY [facility] Last Admin: 11/09/16 08:29 Dose: 20 mg
--- NOTE | 2016-11-09 09:13 | CP.PCM.PN ---
Subjective - Date & Time of Evaluation Date of Evaluation: 11/08/16 Time of Evaluation: 09:12 - Subjective Subjective: Patient remains well Has no chest pain or SOB Objective - Vital Signs/Intake and Output Vital Signs (last 24 hours): Temp Pulse Resp BP Pulse Ox 98.1 F 63 20 110/60 97 11/09/16 08:35 11/09/16 08:35 11/09/16 08:35 11/09/16 08:35 11/09/16 08:35 - Medications Medications: Current Medications Acetaminophen/Codeine Phosphate (Tylenol/Codeine 300 Mg/30 Mg) 1 tab PO Q4 PRN PRN Reason: pain 4-02/04 Ergocalciferol (Drisdol 50,000 Intl Units Cap) 1 cap PO Q7D [facility] Last Admin: 11/05/16 12:17 Dose: 1 cap Famotidine (Pepcid) 20 mg PO DAILY [facility] Last Admin: 11/09/16 08:29 Dose: 20 mg Home Med (Leflunomide [Arava]) 20 mg PO DAILY [facility] Last Admin: 11/09/16 08:29 Dose: 20 mg Pravastatin Sodium (Pravachol) 20 mg PO DAILY [facility] Last Admin: 11/09/16 08:29 Dose: 20 mg
--- NOTE | 2016-11-09 09:14 | CP.PCM.PN ---
Subjective - Date & Time of Evaluation Date of Evaluation: 11/06/16 - Subjective Subjective: Patient is doing well Participates with PT Objective - Vital Signs/Intake and Output Vital Signs (last 24 hours): Temp Pulse Resp BP Pulse Ox 98.1 F 63 20 110/60 97 11/09/16 08:35 11/09/16 08:35 11/09/16 08:35 11/09/16 08:35 11/09/16 08:35 - Medications Medications: Current Medications Acetaminophen/Codeine Phosphate (Tylenol/Codeine 300 Mg/30 Mg) 1 tab PO Q4 PRN PRN Reason: pain 4-02/04 Ergocalciferol (Drisdol 50,000 Intl Units Cap) 1 cap PO Q7D [facility] Last Admin: 11/05/16 12:17 Dose: 1 cap Famotidine (Pepcid) 20 mg PO DAILY [facility] Last Admin: 11/09/16 08:29 Dose: 20 mg Home Med (Leflunomide [Arava]) 20 mg PO DAILY [facility] Last Admin: 11/09/16 08:29 Dose: 20 mg Pravastatin Sodium (Pravachol) 20 mg PO DAILY [facility] Last Admin: 11/09/16 08:29 Dose: 20 mg
--- NOTE | 2016-11-09 09:15 | CP.PCM.PN ---
Subjective - Date & Time of Evaluation Date of Evaluation: 11/01/16 Time of Evaluation: 10:00 - Subjective Subjective: Patient has minimal pain Doing well with PT Drain taken off. Has no fever. Objective - Vital Signs/Intake and Output Vital Signs (last 24 hours): Temp Pulse Resp BP Pulse Ox 98.1 F 63 20 110/60 97 11/09/16 08:35 11/09/16 08:35 11/09/16 08:35 11/09/16 08:35 11/09/16 08:35 - Medications Medications: Current Medications Acetaminophen/Codeine Phosphate (Tylenol/Codeine 300 Mg/30 Mg) 1 tab PO Q4 PRN PRN Reason: pain 4-02/04 Ergocalciferol (Drisdol 50,000 Intl Units Cap) 1 cap PO Q7D [facility] Last Admin: 11/05/16 12:17 Dose: 1 cap Famotidine (Pepcid) 20 mg PO DAILY [facility] Last Admin: 11/09/16 08:29 Dose: 20 mg Home Med (Leflunomide [Arava]) 20 mg PO DAILY [facility] Last Admin: 11/09/16 08:29 Dose: 20 mg Pravastatin Sodium (Pravachol) 20 mg PO DAILY [facility] Last Admin: 11/09/16 08:29 Dose: 20 mg
--- NOTE | 2016-11-09 09:15 | CP.PCM.PN ---
Subjective - Date & Time of Evaluation Date of Evaluation: 11/02/16 - Subjective Subjective: Doing well with PT Has no fever Has no constipation Objective - Vital Signs/Intake and Output Vital Signs (last 24 hours): Temp Pulse Resp BP Pulse Ox 98.1 F 63 20 110/60 97 11/09/16 08:35 11/09/16 08:35 11/09/16 08:35 11/09/16 08:35 11/09/16 08:35 - Medications Medications: Current Medications Acetaminophen/Codeine Phosphate (Tylenol/Codeine 300 Mg/30 Mg) 1 tab PO Q4 PRN PRN Reason: pain 4-02/04 Ergocalciferol (Drisdol 50,000 Intl Units Cap) 1 cap PO Q7D [facility] Last Admin: 11/05/16 12:17 Dose: 1 cap Famotidine (Pepcid) 20 mg PO DAILY [facility] Last Admin: 11/09/16 08:29 Dose: 20 mg Home Med (Leflunomide [Arava]) 20 mg PO DAILY [facility] Last Admin: 11/09/16 08:29 Dose: 20 mg Pravastatin Sodium (Pravachol) 20 mg PO DAILY [facility] Last Admin: 11/09/16 08:29 Dose: 20 mg
--- NOTE | 2016-11-09 09:18 | CP.PCM.DIS ---
Provider - Provider Date of Admission: 10/30/16 16:47 Attending physician: Rodger Cuadra MD Primary care physician: Anahi Panda MD Hospital Course - Hospital Course Hospital Course: This is a 76 y/o female admitted for PT after lumbar laminectomy. Discharge Exam - Head Exam Head Exam: ATRAUMATIC, NORMAL INSPECTION, NORMOCEPHALIC Discharge Plan - Follow Up Plan Condition: GOOD Disposition: HOME/ ROUTINE Referrals: Anahi Foster MD [Primary Care Provider] -
[2016-11-09 12:09] VITALS: BP 110/60; PULSE 63
== END 2016-11-09 11:30 | disposition home or self-care (01) | DRG 552 ==
PROVIDERS: ADMIT Family Medicine; ATTEND Family Medicine
PROC: F07Z9FZ Gait Training/Functional Ambulation Treatment using Assistive, Adaptive, Supportive or Protective Equipment (ICD-10-PCS; principal; 2016-10-30)
PROC: F08Z4FZ Home Management Treatment using Assistive, Adaptive, Supportive or Protective Equipment (ICD-10-PCS; 2016-10-30)
PROC: F07M6FZ Therapeutic Exercise Treatment of Musculoskeletal System - Whole Body using Assistive, Adaptive, Supportive or Protective Equipment (ICD-10-PCS; 2016-10-30)
DX: M54.5 Low back pain (principal); I95.9 Hypotension, unspecified; G89.29 Other chronic pain; M06.9 Rheumatoid arthritis, unspecified; I10 Essential (primary) hypertension; E78.5 Hyperlipidemia, unspecified; E78.00 Pure hypercholesterolemia, unspecified; M19.90 Unspecified osteoarthritis, unspecified site; R20.0 Anesthesia of skin

== ENCOUNTER 2017-10-08 06:28 | Inpatient (IN) | payer MEDICARE, BC ==
[2017-10-08] MEDS ORDERED: Bacitracin Ointment 30 GM TUBE ONE (07:44)
[2017-10-08] MEDS ORDERED: ceFAZolin IV 2 gm in Dextrose 2 GM/50 ML BAG IVPB ONE (07:44)
[2017-10-08] MEDS ORDERED: Thrombin Topical 5,000 Int Units Spray Kit ONE (07:45)
[2017-10-08] MEDS ORDERED: Absorbable Gelatin Sponge Size 100 ONE (07:45)
--- NOTE | 2017-10-08 07:47 | CP.PCM.CON ---
History of Present Illness - History of Present Illness History of Present Illness: 76 yo female with prior hx lumbar spondylosis and L3-5 Lami /instrumented fusion,resolution of prior LBP and BLE symptoms post op ,p/w recurrent LBP rad LLE and numbness to right foot,BLE weakness >right,temporary relief in LLE symptoms post cortisone injection,referred back to neurosurgery from PMD amb with a cane currently,outpt imaging showing HNP L2-3,denies B/B incontinance or trauma Review of Systems - Review of Systems Systems not reviewed;Unavailable: Acuity of Condition - Cardiovascular Additional comments: Hx Htn - Musculoskeletal Musculoskeletal: Muscle Weakness, Numbness, Radiating Pain into Limb Additional comments: Rheumatoid Arthritis on Arava - Integumentary Additional comments: healed surgical scar's - Neurological Neurological: As Per HPI Additional comments: prior L3-5 decompressive Lami with instrumented fusion,CSF leak and repair Past Patient History - Infectious Disease Hx of Infectious Diseases: None - Tetanus Immunizations Tetanus Immunization: Unknown - Past Medical History & Family History Past Medical History?: Yes - Past Social History Smoking Status: Never Smoked Chewing Tobacco Use: No Cigar Use: No Occupation: retired Alcohol: Occasional Drugs: Denies Home Situation {Lives}: Alone Domestic Violence: Negative - CARDIAC Hx Cardiac Disorders: Yes Hx Hypercholesterolemia: Yes Hx Hypertension: Yes - PULMONARY Hx Respiratory Disorders: No - NEUROLOGICAL Hx Neurological Disorder: No - HEENT Hx HEENT Problems: No - RENAL Hx Chronic Kidney Disease: No - ENDOCRINE/METABOLIC Hx Endocrine Disorders: No - HEMATOLOGICAL/ONCOLOGICAL Hx Blood Disorders: No Hx Blood Transfusions: Yes Hx Blood Transfusion Reaction: No - INTEGUMENTARY Hx Dermatological Problems: No - MUSCULOSKELETAL/RHEUMATOLOGICAL Hx Musculoskeletal Disorders: Yes Hx Arthritis: Yes (hands,knees,back) Hx Back Pain: Yes Hx Falls: No Hx Rheumatoid Arthritis: Yes Other/Comment: MUSCLE WEAKNESS - GASTROINTESTINAL Hx Gastrointestinal Disorders: No - GENITOURINARY/GYNECOLOGICAL Hx Genitourinary Disorders: No - PSYCHIATRIC Hx Emotional Abuse: No Hx Physical Abuse: No - SURGICAL HISTORY Hx Surgeries: Yes Other/Comment: REMOVAL LEFT OVARY and tube ,lumbar laminectomy - ANESTHESIA Hx Anesthesia: Yes Hx Anesthesia Reactions: No Hx Malignant Hyperthermia: No Has any member of the family had a problem w/ anesthesia?: No Meds Allergies/Adverse Reactions: Allergies Allergy/AdvReac Type Severity Reaction Status Date / Time No Known Allergies Allergy Verified 10/08/17 07:42 Physical Exam - Constitutional Appears: Well, Non-toxic, No Acute Distress - Head Exam Head Exam: ATRAUMATIC, NORMAL INSPECTION, NORMOCEPHALIC - Eye Exam Eye Exam: EOMI, Normal appearance, PERRL Pupil Exam: NORMAL ACCOMODATION - ENT Exam ENT Exam: Mucous Membranes Moist - Neck Exam Neck exam: Positive for: Normal Inspection - Respiratory Exam Respiratory Exam: Clear to Auscultation Bilateral, NORMAL BREATHING PATTERN - Cardiovascular Exam Cardiovascular Exam: REGULAR RHYTHM, +S1, +S2 - GI/Abdominal Exam GI & Abdominal Exam: Normal Bowel Sounds, Soft - Rectal Exam Rectal Exam: Deferred - Extremities Exam Extremities exam: Positive for: normal inspection, pedal pulses present - Back Exam Back exam: vertebral tenderness Additional comments: healed surgical scar's - Neurological Exam Neurological exam: Alert, Oriented x3 Additional comments: GRIDER x 4 antigravity with BLE weakness 4 to 4+/5,right foot paresthesias,no pelvic paresthesias,depressed DTR BLE - Psychiatric Exam Psychiatric exam: Normal Affect, Normal Mood - Skin Skin Exam: Dry, Intact, Normal Color Results - Vital Signs Recent Vital Signs: Last Vital Signs Temp 98.2 F 10/08/17 07:31 Pulse 69 10/08/17 07:35 Resp 18 10/08/17 07:31 BP 108/66 10/08/17 07:31 Pulse Ox 98 10/08/17 07:31 - Labs Result Diagrams: 10/08/17 08:26 Assessment & Plan - Assessment and Plan (Free Text) Assessment: 76 yo female with 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 Reyes.
[2017-10-08] MEDS ORDERED: Bupivacaine HCl 0.25% PF (30 ml) Inj ONE (08:16)
[2017-10-08 08:36] LABS: HEMOGLOBIN 9.8 g/dL (12.0-16.0); MEAN CELL VOLUME 85.2 fl (81.0-99.0); MEAN CORPUSCULAR HEMOGLOBIN 27.7 pg (27.0-31.0); MEAN CORPUSCULAR HGB CONC 32.5 g/dL (33.0-37.0); RBC 3.54 Mil/uL (3.80-5.20); RED CELL DISTRIBUTION WIDTH 16.7 % (11.5-14.5); WHITE BLOOD COUNT 4.5 K/uL (4.8-10.8)
[2017-10-08] MEDS ORDERED: Propofol 10 mg/ml Inj (20 ML) ONE (08:58)
[2017-10-08] MEDS ORDERED: Rocuronium 10 mg/ml (5 ml) ONE (08:58)
[2017-10-08] MEDS ORDERED: Lactated Ringer's 1,000 ML IV ONE (09:00)
[2017-10-08] MEDS ORDERED: Neostigmine 1:1000 (1 mg/ml) Inj ONE (09:31)
[2017-10-08] MEDS ORDERED: Lactated Ringer's 1,000 ML IV SCH (10:30)
[2017-10-08] MEDS ORDERED: Benzocaine/Menthol (Cepacol) Lozenge PO PRN (10:55)
[2017-10-08] MEDS ORDERED: Oxycodone/Acetaminophen 5/325 mg Tab PO PRN (10:58)
--- NOTE | 2017-10-08 15:49 | CP.PCM.HP ---
History of Present Illness - History of Present Illness History of Present Illness: CC: s/p L2-L3 laminectomy HPI: 76 y/o woman w/ pmh of HTN (controlled) and HLD (controlled) who is admitted s/ p L2-L3 laminectomy. Patient continued to have low back pain and paresthesia that failed conservative treatment s/p L3-L5 laminectomy and fusion 1 year ago. Patient tolerated the procedure well and recovering appropriately. She has a history of chronic low back pain with b/l LE numbness that failed conservative management and required surgical intervention. Patient denies fever, chills, headaches, chest pain, SOB, palpitations, abdominal pain, nausea, vomiting, diarrhea, or dysuria. PMD: Dr. Cuadar PMHx: HTN, HLD Meds: Losartan/HCTZ, Pravastatin, arava allergies: NKDA PSH: L3-L5 laminectomy and fusion on 10/24/2016, ovarian cyst removal 1978 Fam: non-contributory SOC: denies ETOH, tobacco, drug abuse ROS: 12 points assessed and negative unless otherwise reported in HPI Present on Admission - Present on Admission Any Indicators Present on Admission: No History of DVT/PE: No History of Uncontrolled Diabetes: No Urinary Catheter: No Decubitus Ulcer Present: No Review of Systems - Review of Systems All systems: reviewed and no additional remarkable complaints except - Constitutional Constitutional: absent: Chills, Fever - EENT Eyes: absent: Change in Vision - Cardiovascular Cardiovascular: absent: Chest Pain - Respiratory Respiratory: absent: Dyspnea - Gastrointestinal Gastrointestinal: absent: Abdominal Pain, Nausea, Vomiting - Genitourinary Genitourinary: absent: Dysuria - Integumentary Integumentary: absent: Rash - Neurological Neurological: absent: Dizziness, Headaches Past Patient History - Infectious Disease Hx of Infectious Diseases: None - Tetanus Immunizations Tetanus Immunization: Unknown - Past Medical History & Family History Past Medical History?: Yes - Past Social History Smoking Status: Never Smoked Chewing Tobacco Use: No Cigar Use: No Occupation: retired Alcohol: Occasional Drugs: Denies Home Situation {Lives}: Alone Domestic Violence: Negative - CARDIAC Hx Cardiac Disorders: Yes Hx Hypercholesterolemia: Yes Hx Hypertension: Yes - PULMONARY Hx Respiratory Disorders: No - NEUROLOGICAL Hx Neurological Disorder: No - HEENT Hx HEENT Problems: No - RENAL Hx Chronic Kidney Disease: No - ENDOCRINE/METABOLIC Hx Endocrine Disorders: No - HEMATOLOGICAL/ONCOLOGICAL Hx Blood Disorders: No Hx Blood Transfusions: Yes Hx Blood Transfusion Reaction: No - INTEGUMENTARY Hx Dermatological Problems: No - MUSCULOSKELETAL/RHEUMATOLOGICAL Hx Musculoskeletal Disorders: Yes Hx Arthritis: Yes (hands,knees,back) Hx Back Pain: Yes Hx Falls: No Hx Rheumatoid Arthritis: Yes Other/Comment: MUSCLE WEAKNESS - GASTROINTESTINAL Hx Gastrointestinal Disorders: No - GENITOURINARY/GYNECOLOGICAL Hx Genitourinary Disorders: No - PSYCHIATRIC Hx Emotional Abuse: No Hx Physical Abuse: No - SURGICAL HISTORY Hx Surgeries: Yes Other/Comment: REMOVAL LEFT OVARY and tube ,lumbar laminectomy - ANESTHESIA Hx Anesthesia: Yes Hx Anesthesia Reactions: No Hx Malignant Hyperthermia: No Has any member of the family had a problem w/ anesthesia?: No Meds Allergies/Adverse Reactions: Allergies Allergy/AdvReac Type Severity Reaction Status Date / Time No Known Allergies Allergy Verified 10/08/17 07:42 Physical Exam - Constitutional Appears: Non-toxic, No Acute Distress - Head Exam Head Exam: ATRAUMATIC, NORMAL INSPECTION, NORMOCEPHALIC - Eye Exam Eye Exam: Normal appearance - ENT Exam ENT Exam: Mucous Membranes Moist - Neck Exam Neck exam: Positive for: Full Rom. Negative for: Tenderness - Respiratory Exam Respiratory Exam: Clear to Auscultation Bilateral. absent: Accessory Muscle Use , Decreased Breath Sounds, Rales, Rhonchi, Wheezes, Respiratory Distress - Cardiovascular Exam Cardiovascular Exam: REGULAR RHYTHM. absent: Tachycardia - GI/Abdominal Exam GI & Abdominal Exam: Normal Bowel Sounds, Soft. absent: Distended, Tenderness - Extremities Exam Extremities exam: Positive for: normal inspection. Negative for: calf tenderness - Neurological Exam Neurological exam: Alert, CN II-XII Intact, Oriented x3 - Skin Skin Exam: Dry, Intact, Normal Color, Warm Results - Vital Signs Recent Vital Signs: Last Vital Signs Temp 97.9 F 10/08/17 15:22 Pulse 62 10/08/17 15:22 Resp 16 10/08/17 15:22 BP 107/59 L 10/08/17 15:22 Pulse Ox 97 10/08/17 15:22 - Labs Result Diagrams: 10/08/17 08:26 Labs: Laboratory Results - last 24 hr 10/08/17 10/08/17 08:26 08:26 WBC 4.5 L RBC 3.54 L Hgb 9.8 L Hct 30.2 L MCV 85.2 MCH 27.7 MCHC 32.5 L RDW 16.7 H Plt Count 255 Blood Type B POSITIVE Antibody Screen Negative BBK History Checked Patient has bt Assessment & Plan (1) S/P laminectomy Status: Acute Priority: Medium - Assessment and Plan (Free Text) Plan: afebrile, non-tachycardic, normotensive neurosurgery recommendations appreciated c/w home medications ancef 1 gm IV Q8h day 1 IVF LR 1 L @ 75 mL/hr pain management: percocet 1 tab PO Q4h prn, morphine 2 mg IV Q4h prn f/u CBC, CMP, mag, phos in AM prophylactic measures: DVT SCDs monitor for acute changes
[2017-10-08] MEDS ORDERED: ceFAZolin 1 GM in Sodium Chloride 0.9% 100 ML IVPB SCH (17:00)
--- NOTE | 2017-10-08 23:47 | OP ---
PROCEDURE DATE: 10/08/2017 PREOPERATIVE DIAGNOSIS: Lumbar spondylosis at L2-3. POSTOPERATIVE DIAGNOSIS: Lumbar spondylosis at L2-3. PROCEDURE: L2-3 lumbar laminectomy with decompression. SURGEON: Doc Reyes MD WATER PROJECT ENGINEER: Rico Jordan PA-C; and Romana Holland PA-C. DESCRIPTION OF PROCEDURE: The patient was brought to the operating room, anesthetized with general endotracheal anesthesia. The patient was placed in a prone position. Back of the lumbar area was thoroughly prepped and draped in sterile manner after marking was consistent for lumbar laminectomy. After prepping and draping the area, the skin has been incised. Bleeding skins have been controlled with bipolar electrostatic powder coating technician. Using a Bovie electrostatic powder coating technician, the paraspinal muscles have been detached from attachments of spinous process and lamina of L2-3. Identification of levels has been done with the help of fluoroscopy. At this point, by using magnification, the spinous process of L2 and L3 have been removed by using high-speed drill, the lamina of L2-3 have been drilled to actual thickness. By using a fine Kerrison punch, thinned out the lamina, medial part of the facets and ligamentum flavum have been removed, decompressing this area. After that, hemostasis was best achieved. Fascia closed by 1 Vicryl, subcutaneous tissue with 3 Vicryl, and skin had been with intradermal 3 Vicryl stitches. The patient tolerated the procedure, and after procedure mobilized to the recovery room in stabilized condition. Doc Reyes MD
[2017-10-09 00:16] VITALS: O2SAT 95
--- NOTE | 2017-10-09 01:25 | CP.PCM.PCO ---
Physician Communication Note - Physician Communication Note Physician Communication Note: patient temp of 101.9 F, blood and urine cultures ordered, tylenol given
--- NOTE | 2017-10-09 08:00 | PQF GENQUE ---
This form is a permanent part of the medical record 10/09/17 Dr. Cuadra, Would you please clarify if there is an associated diagnosis or not to go along with the H&H findings. H&H on admission: .2. Clarification of your documentation is requested to better reflect the severity of illness and intensity of treatment of your patient. Indicators present PHYSICIAN'S RESPONSE Based on your medical judgment of the clinical indicators outlined above please clarify the following: [] Practitioner response [] If unable to determine, please check the box, sign and date. Present On Admission (POA) Indicator: [] Present at the time of admission [] Not present at the time of admission [] Clinically Undetermined In responding to this query, please exercise your independent professional judgment. The fact that a question is asked does not imply that any particular answer is desired or expected. Thank you for your clarification on this documentation. If you have any questions please call:ext [phone] * Thank you, Lorie Hopkins RN CDMP MTDD
[2017-10-09 08:09] VITALS: BP 122/69; PULSE 74; RESP 20; TEMP 99
--- NOTE | 2017-10-09 08:26 | RAD ---
PROCEDURE: Intraoperative Fluoroscopy. HISTORY: LUMBAR LAMINECTOMY FINDINGS: Fluoroscopic assistance was provided for lumbar laminectomy. Please refer to the operative report from JONI Navarro. Total fluoroscopic time (continuous mode) utilized during the procedure (seconds) 5.5. Total exam DLP: (mGy) 1.42.
--- NOTE | 2017-10-09 08:32 | CP.PCM.PN ---
Subjective - Date & Time of Evaluation Date of Evaluation: 10/09/17 Time of Evaluation: 07:45 - Subjective Subjective: Patient seen and examined at bedside comfortable. Pain well controlled. No acute events overnight. Objective - Vital Signs/Intake and Output Vital Signs (last 24 hours): Temp Pulse Resp BP Pulse Ox 99.0 F 74 20 122/69 95 10/09/17 08:09 10/09/17 08:09 10/09/17 08:09 10/09/17 08:09 10/09/17 08:09 - Medications Medications: Current Medications Benzocaine/Menthol (Cepacol Sore Throat) 1 trinity PO Q2 PRN PRN Reason: Sore Throat Cyclobenzaprine HCl (Flexeril) 5 mg PO TID PRN PRN Reason: Muscle spasm Docusate Sodium (Colace) 100 mg PO BID [facility] Last Admin: 10/08/17 17:12 Dose: 100 mg Enoxaparin Sodium (Lovenox) 40 mg SC DAILY [facility] PRN Reason: Protocol Hydrochlorothiazide (Microzide) 12.5 mg PO DAILY [facility] Lactated Ringer's (Lactated Ringer's) 1,000 mls @ 75 mls/hr IV .[id number] [facility] Losartan Potassium (Cozaar) 100 mg PO DAILY [facility] Morphine Sulfate (Morphine) 2 mg IVP Q4 PRN PRN Reason: Pain, severe (8-10) Oxycodone/Acetaminophen (Percocet 5/325 Mg Tab) 1 tab PO Q4 PRN PRN Reason: Pain, moderate (4-7) Stop: 10/11/17 10:59 Pravastatin Sodium (Pravachol) 20 mg PO DAILY [facility] - Labs Labs: 10/08/17 08:26 - Back Exam Additional comments: Lumbar: Dressings CDI, mild swelling gross NVI distally calves soft and NT b/l - Neurological Exam Neurological Exam: Alert, CN II-XII Intact, Oriented x3, Reflexes Normal Assessment and Plan (1) Lumbar spondylosis Assessment & Plan: Patient is POD#1 s/p L2-3 laminotomy doing well -PT/OT WBAT -neurosurgically stable for discharge to home once evaluated by PT -f/u in office in 7-10 days -above d/w Dr. Reyes in agreement Status: Acute
[2017-10-09] MEDS ORDERED: Enoxaparin 40 mg Syringe SC SCH (09:00)
[2017-10-09] MEDS ORDERED: Pravastatin Sodium 20 MG TAB PO SCH (09:00)
--- NOTE | 2017-10-09 13:29 | CP.PCM.DIS ---
Provider - Provider Date of Admission: 10/08/17 10:47 Attending physician: Doc Bermeo MD Primary care physician: Anahi Panda MD Time Spent in preparation of Discharge (in minutes): 15 Diagnosis - Discharge Diagnosis (1) S/P laminectomy Status: Acute Priority: Medium Hospital Course - Lab Results Lab Results: Most Recent Lab Values WBC 4.5 K/uL (4.8-10.8) L 10/08/17 08:26 RBC 3.54 Mil/uL (3.80-5.20) L 10/08/17 08:26 Hgb 9.8 g/dL (12.0-16.0) L 10/08/17 08:26 Hct 30.2 % (34.0-47.0) L 10/08/17 08:26 MCV 85.2 fl (81.0-99.0) 10/08/17 08:26 MCH 27.7 pg (27.0-31.0) 10/08/17 08:26 MCHC 32.5 g/dL (33.0-37.0) L 10/08/17 08:26 RDW 16.7 % (11.5-14.5) H 10/08/17 08:26 Plt Count 255 K/uL (130-400) 10/08/17 08:26 Blood Type Cancelled 10/08/17 08:26 Antibody Screen Cancelled 10/08/17 08:26 BBK History Checked Cancelled 10/08/17 08:26 - Hospital Course Hospital Course: 76 y/o woman w/ pmh of HTN (controlled) and HLD (controlled) who is admitted s/ p L2-L3 laminectomy POD 1. Patient seen by neurosurgery. Patient is tolerated procedure, recovering appropriately, and reports pain is relieved w/ medication. The patient has been seen, examined, and deemed medically fit for discharge home. The patient is discharged w/ flexeril PO. The patient is to follow up w/ Dr. Bermeo in 1 week. Discharge Exam - Head Exam Head Exam: ATRAUMATIC, NORMAL INSPECTION, NORMOCEPHALIC - Eye Exam Eye Exam: Normal appearance - ENT Exam ENT Exam: Mucous Membranes Moist - Neck Exam Neck exam: Full Rom - Respiratory Exam Respiratory Exam: Clear to PA & Lateral. absent: Accessory Muscle Use, Decreased Breath Sounds, Rales, Rhonchi, Wheezes, Respiratory Distress - Cardiovascular Exam Cardiovascular Exam: REGULAR RHYTHM. absent: Tachycardia - GI/Abdominal Exam GI & Abdominal Exam: Normal Bowel Sounds, Soft. absent: Distended, Tenderness - Extremities Exam Extremities exam: normal inspection - Back Exam Back exam: absent: tenderness Additional comments: dressing c/d/i - Neurological Exam Neurological exam: Alert, Normal Gait, Oriented x3 - Skin Skin Exam: Dry, Intact, Normal Color, Warm Discharge Plan - Discharge Medications Prescriptions: Cyclobenzaprine [Flexeril] 5 mg PO TID PRN #30 tab PRN Reason: Muscle Spasm - Follow Up Plan Condition: GOOD Disposition: HOME/ ROUTINE Instructions: Laminectomy (DC) Additional Instructions: follow up with primary MD and dr bermeo 5-7 days Referrals: Doc Bermeo MD [Staff Provider] - Anahi Foster MD [Primary Care Provider] -
== END 2017-10-09 12:51 | disposition home or self-care (01) | DRG 517 ==
LOC: H.OPSURG 06:28 → H.MEDSURG1 10:47
PROVIDERS: ADMIT Family Medicine; ATTEND Neurological Surgery
PROC: 01NB0ZZ Release Lumbar Nerve, Open Approach (ICD-10-PCS; principal; 2017-10-08 09:45)
DX: M47.26 Other spondylosis with radiculopathy, lumbar region (principal); I10 Essential (primary) hypertension; E78.5 Hyperlipidemia, unspecified; M06.9 Rheumatoid arthritis, unspecified; G89.29 Other chronic pain; D63.8 Anemia in other chronic diseases classified elsewhere